=== PATIENT | male | born 1935 | race Caucasian/White ===

== ENCOUNTER 2016-09-29 20:35 | Emergency (ER) | payer MEDICARE ==
[2016-09-29] MEDS ORDERED: Sodium Chloride 0.9% 1000 ML 1,000 ML ONE (20:38)
[2016-09-29] MEDS: Sodium Chloride 0.9% 1000 ML 1,000 ML IV SCH ×2 (20:43→20:49)
[2016-09-29] MEDS ORDERED: Phenergan 25 MG INJ IV ONE ×2 (20:45→21:47)
--- NOTE | 2016-09-29 20:47 | ERPHSYRPT ---
- History of Present Illness Time Seen by Provider: 09/29/16 20:35 Historian: EMS Exam Limitations: other (PT WILL NOT ANSWER MY QUESTIONS) Physician History: PT HAS HAD CHEST HEAVINESS AND LETHARGY TONIGHT PER EMS. PT WILL NOT ANSWER ANY OF MY QUESTIONS. Aspirin Treatment Today: 81 mg x 4, provided by ED Allergies/Adverse Reactions: methotrexate Adverse Reaction (Verified 09/29/16 20:38) Home Medications: Atorvastatin Calcium [Lipitor 40Mg] 40 mg PO DAILY 07/17/16 [History] Celecoxib [Celebrex] 200 mg PO UD 07/17/16 [History] Cyanocobalamin (Vitamin B-12) [Vitamin B-12] 1,000 mcg PO UD 07/17/16 [History] Ferrous Sulfate [Slow Release Iron] 65 mg PO UD 07/17/16 [History] Folic Acid 1 mg PO UD 07/17/16 [History] Glipizide 2.5 mg [Glucotrol Xl 2.5 MG] 2.5 mg PO UD 07/17/16 [History] Lisinopril [Zestril] 2.5 tab PO UD 07/17/16 [History] Metaxalone [Skelaxin] 800 mg PO UD 07/17/16 [History] Nintedanib Esylate [Ofev] 150 mg PO BID 07/17/16 [History] PANTOPRAZOLE 40 mg Tablet [Protonix 40MG Tablet] 40 mg PO UD 07/17/16 [ History] Prednisone 20 mg [Deltasone 20 mg] 20 mg PO DAILY 07/17/16 [History] Pregabalin [Lyrica 150Mg] 150 mg PO UD 07/17/16 [History] Sertraline HCl 100 mg [Zoloft 100 MG] 100 mg PO UD 07/17/16 [History] Zaleplon [Sonata] 10 mg PO UD 07/17/16 [History] Hx Tetanus, Diphtheria Vaccination/Date Given: No Hx Influenza Vaccination/Date Given: Yes Hx Pneumococcal Vaccination/Date Given: Yes - Review of Systems All Other Systems: Unable due to condition (PT WILL NOT ANSWER ANY OF MY QUESTIONS.) - Past Medical History Pertinent Past Medical History: Yes Cardiac History: Congenital Heart Disease, Hypertension Respiratory History: Other GI Medical History: Crohns Disease Other Medical History: pulmonary fibrosis, kidney stones - Past Surgical History Past Surgical History: Yes Cardiac: CABG Gastrointestinal: Appendectomy Musculoskeletal: Orthopedic Surgery Other Surgical History: neck surg,knee surg, great toe - Social History Smoking Status: Former smoker Exposure to second hand smoke: No Drug Use: none Patient Lives Alone: No - Physical Exam General Appearance: alert Eye Exam: PERRL/EOMI Ears, Nose, Throat Exam: moist mucous membranes, pharyngeal erythema Neck Exam: normal inspection Respiratory Exam: other (MINIMAL EXPIRATORY WHEEZING AND RHONCHI OVER LEFT POSTERIOR BASE) Cardiovascular Exam: normal heart sounds Gastrointestinal/Abdomen Exam: soft, normal bowel sounds Back Exam: normal inspection Extremity Exam: normal inspection, No pedal edema Neurologic Exam: other (NO BABINSKI PRESENT; GENERALIZED WEAKNESS.) - Course Nursing assessment & vital signs reviewed: Yes EKG Interpreted by Me: RATE (101), Sinus Tach, Left Mclean Deviation, LAFB, Other (UNIFOCAL PVC'S) Ordered Tests: Active Orders 24 hr Category Date Time Status Beck Operator STAT Care 09/29/16 20:37 Active EKG-ER Only STAT Care 09/29/16 20:37 Active IV Insertion STAT Care 09/29/16 20:37 Active Oxygen-ED Only NASAL CANNULA 2 lpm Care 09/29/16 20:37 Active Pulse Oximetry (ED) STAT Care 09/29/16 20:37 Active CHEST 1 VIEW (PORTABLE) Stat Exams 09/29/16 20:38 Taken CHEST WITH CONTRAST [CT] Stat Exams 09/29/16 23:06 Taken AMYLASE Stat Lab 09/29/16 20:38 Completed ARTERIAL BLOOD GASES Urgent Lab 09/29/16 20:37 Completed BLOOD CULTURE Stat Lab 09/29/16 21:10 Received CBC W DIFF Stat Lab 09/29/16 21:10 Completed CMP Stat Lab 09/29/16 20:38 Completed CULTURE,SPUTUM Stat Lab 09/30/16 00:26 Uncollected CULTURE,URINE Stat Lab 09/29/16 22:25 Received D-DIMER QUANTITATION Stat Lab 09/29/16 20:38 Completed LIPASE Stat Lab 09/29/16 20:38 Completed Lactic Acid Urgent Lab 09/29/16 20:37 Completed MAGNESIUM Stat Lab 09/29/16 20:38 Completed NT PRO BNP Stat Lab 09/29/16 20:38 Completed PROTIME WITH INR Stat Lab 09/29/16 20:38 Completed PTT Stat Lab 09/29/16 20:38 Completed TROPONIN Q3H Lab 09/29/16 20:38 Completed TROPONIN Q3H Lab 09/29/16 23:50 Completed TROPONIN Q3H Lab 09/30/16 02:45 Ordered TROPONIN Q3H Lab 09/30/16 05:45 Ordered TROPONIN Q3H Lab 09/30/16 08:45 Ordered UA W/ MICROSCOPIC Stat Lab 09/29/16 21:40 Completed neb [Respiratory Nebulizer] STAT RT 09/30/16 00:41 Completed Medication Summary Generic Name Dose Route Start Last Admin Trade Name Freq PRN Reason Stop Dose Admin Sodium Chloride 1,000 mls @ 100 mls/hr 09/29/16 20:45 09/29/16 20:43 Sodium Chloride 0.9% 1000 Ml IV 10/29/16 20:44 100 mls/hr .Q10H PATRICIA Administration Discontinued Medications Generic Name Dose Route Start Last Admin Trade Name Freq PRN Reason Stop Dose Admin Al Hydrox/Mg Hydrox/Simethicone 30 ml 09/30/16 00:56 Maalox Es 30 Ml Unit Dose PO 09/30/16 00:57 STAT ONE Hydromorphone HCl 0.5 mg 09/29/16 23:53 09/30/16 00:00 Dilaudid 1 Mg/Ml Injection IV 09/29/16 23:54 0.5 mg STAT ONE Administration Hydromorphone HCl Confirm 09/29/16 23:55 Dilaudid 1 Mg/Ml Injection Administered 09/29/16 23:56 Dose 1 mg .ROUTE .STK-MED ONE Sodium Chloride Confirm 09/29/16 20:38 Sodium Chloride 0.9% 1000 Ml Administered 09/29/16 20:39 Dose 1,000 mls @ ud .ROUTE .STK-MED ONE Magnesium Sulfate/Dextrose 100 mls @ 200 mls/hr 09/29/16 21:51 09/29/16 22:14 Magnesium 1 Gm / 100 Ml D5w IV 09/29/16 22:20 200 mls/hr STAT ONE Administration Magnesium Sulfate/Dextrose Confirm 09/29/16 22:11 Magnesium 1 Gm / 100 Ml D5w Administered 09/29/16 22:12 Dose 100 mls @ ud IV .STK-MED ONE Ceftriaxone Sodium/Dextrose 50 mls @ 100 mls/hr 09/29/16 23:39 09/30/16 00:00 Rocephin 1 Gm-D5w 50 Ml Bag IV 09/30/16 00:08 100 mls/hr STAT ONE Administration Ceftriaxone Sodium/Dextrose Confirm 09/29/16 23:54 Rocephin 1 Gm-D5w 50 Ml Bag Administered 09/29/16 23:55 Dose 50 mls @ ud IV .STK-MED ONE Levalbuterol HCl 1.25 mg 09/30/16 00:26 09/30/16 00:38 Xopenex 1.25 Mg/0.5 Ml Ud Nebule IH 09/30/16 00:27 1.25 mg STAT ONE Administration Levalbuterol HCl Confirm 09/30/16 00:35 Xopenex 1.25 Mg/0.5 Ml Ud Nebule Administered 09/30/16 00:36 Dose 1.25 mg IH .STK-MED ONE Nitroglycerin 0.4 mg 09/29/16 23:05 09/29/16 23:08 Nitrostat 0.4 Mg (Ed) SL 09/29/16 23:06 0.4 mg STAT ONE Administration Nitroglycerin Confirm 09/29/16 23:08 Nitrostat 0.4 Mg (Ed) Administered 09/29/16 23:09 Dose 0.4 mg SL .STK-MED ONE Ondansetron HCl 4 mg 09/29/16 20:57 09/29/16 21:02 Zofran 4 Mg/2 Ml Vial IV 09/29/16 20:58 4 mg STAT ONE Administration Ondansetron HCl Confirm 09/29/16 21:01 Zofran 4 Mg/2 Ml Vial Administered 09/29/16 21:02 Dose 4 mg .ROUTE .STK-MED ONE Promethazine HCl 12.5 mg 09/29/16 20:45 09/29/16 20:49 Phenergan 25 Mg Inj IV 09/29/16 20:46 12.5 mg STAT ONE Administration Promethazine HCl Confirm 09/29/16 20:48 Phenergan 25 Mg Inj Administered 09/29/16 20:49 Dose 25 mg .ROUTE .STK-MED ONE Promethazine HCl 12.5 mg 09/29/16 21:47 09/29/16 21:58 Phenergan 25 Mg Inj IV 09/29/16 21:48 12.5 mg STAT ONE Administration Promethazine HCl Confirm 09/29/16 21:50 Phenergan 25 Mg Inj Administered 09/29/16 21:51 Dose 25 mg .ROUTE .STK-MED ONE Sodium Chloride Confirm 09/30/16 00:36 Sodium Chloride 3 Ml Ud Nebules Administered 09/30/16 00:37 Dose 3 ml IH .STK-MED ONE Lab/Rad Data: Laboratory Result Diagrams 09/29/16 21:10 09/29/16 20:38 Laboratory Results 09/29/16 09/29/16 09/29/16 Range/Units 23:50 21:40 21:10 WBC 10.3 (4.0-10.5) K/mm3 RBC 3.31 L (4.1-5.6) M/mm3 Hgb 10.9 L (12.5-18.0) gm/dl Hct 34.6 L (42-50) % MCV 104.5 H (78-100) fl MCH 32.9 H (26-32) pg MCHC 31.5 L (32-36) g/dl RDW 14.7 H (11.5-14.0) % Plt Count 240 (150-450) K/mm3 MPV 9.9 H (6-9.5) fl Gran % 70.5 H (36.0-66.0) % Lymphocytes % 21.0 L (24.0-44.0) % Monocytes % 6.6 (0.0-12.0) % Eosinophils % 1.7 (0.00-5.0) % Basophils % 0.2 (0.0-0.4) % Basophils # 0.02 (0-0.4) INR (0.8-3.0) PTT (24.1-36.1) SECONDS D-Dimer (0.00-0.49) mg/L Puncture Site pCO2 (35-45) mmHg pO2 (75-100) mmHg Base Excess (-2.0-2.0) O2 Saturation (94-100) g/dF ABG pH (7.35-7.45) ABG HCO3 (22-28) ABG O2 Sat (Measured) (95-100) % Donte Test A-a Gradient a/A Ratio Hemoglobin Carboxyhemoglobin (0.0-6.9) % THgb Methemoglobin (1.4-1.5) % Potassium (3.5-5.1) Temperature C POC O2 Flow Rate % Sodium (136-145) mEq/L Chloride (98-107) mEq/L Carbon Dioxide (21-32) mEq/L Anion Gap (5-15) MEQ/L BUN (9-20) mg/dL Creatinine (0.55-1.30) mg/dl Estimated GFR ML/MIN Glucose (70-110) MG/DL Lactic Acid (0.4-2.0) Calcium (8.5-10.1) mg/dL Magnesium (1.8-2.4) mg/dL Total Bilirubin (0.2-1.0) mg/dL AST (15-37) U/L ALT (12-78) U/L Alkaline Phosphatase (46-116) U/L Troponin I 0.023 (0.000-0.056) ng/ml NT-Pro-B Natriuret Pep (0-450) pg/ml Serum Total Protein (6.4-8.2) gm/dL Albumin (3.4-5.0) g/dL Amylase (25-115) U/L Lipase (73-393) U/L Ur Collection Type CLEAN CATCH Urine Color YELLOW (YELLOW) Urine Appearance CLOUDY (CLEAR) Urine pH 6.0 (5-6) Ur Specific [place] 1.025 (1.005-1.025) Urine Protein 100 (Negative) Urine Glucose (UA) NEGATIVE (NEGATIVE) mg/dL Urine Ketones NEGATIVE (NEGATIVE) Urine Nitrite NEGATIVE (NEGATIVE) Urine Bilirubin NEGATIVE (NEGATIVE) Urine Urobilinogen 0.2 (0-1) mg/dL Urine WBC (Auto) MODERATE (NEGATIVE) Urine RBC (Auto) LARGE (0-5) Russ/ul Urine Microscopic RBC 15-25 (0-2) /HPF Urine Microscopic WBC 25-50 (0-5) /HPF Ur Epithelial Cells RARE (FEW) /HPF Urine Bacteria MODERATE (NEGATIVE) /HPF Urine Mucus SLIGHT (NEGATIVE) /HPF Specimen Received 09/29/16:2150 09/29/16 09/29/16 09/29/16 Range/Units 20:38 20:38 20:38 WBC (4.0-10.5) K/mm3 RBC (4.1-5.6) M/mm3 Hgb (12.5-18.0) gm/dl Hct (42-50) % MCV (78-100) fl MCH (26-32) pg MCHC (32-36) g/dl RDW (11.5-14.0) % Plt Count (150-450) K/mm3 MPV (6-9.5) fl Gran % (36.0-66.0) % Lymphocytes % (24.0-44.0) % Monocytes % (0.0-12.0) % Eosinophils % (0.00-5.0) % Basophils % (0.0-0.4) % Basophils # (0-0.4) INR 1.13 (0.8-3.0) PTT 34.7 (24.1-36.1) SECONDS D-Dimer 0.541 H* (0.00-0.49) mg/L Puncture Site pCO2 (35-45) mmHg pO2 (75-100) mmHg Base Excess (-2.0-2.0) O2 Saturation (94-100) g/dF ABG pH (7.35-7.45) ABG HCO3 (22-28) ABG O2 Sat (Measured) (95-100) % Donte Test A-a Gradient a/A Ratio Hemoglobin Carboxyhemoglobin (0.0-6.9) % THgb Methemoglobin (1.4-1.5) % Potassium 4.2 (3.5-5.1) Temperature C POC O2 Flow Rate % Sodium 141 (136-145) mEq/L Chloride 107 (98-107) mEq/L Carbon Dioxide 22.8 (21-32) mEq/L Anion Gap 15.4 H (5-15) MEQ/L BUN 17 (9-20) mg/dL Creatinine 1.27 (0.55-1.30) mg/dl Estimated GFR 58 ML/MIN Glucose 136 H (70-110) MG/DL Lactic Acid (0.4-2.0) Calcium 9.3 (8.5-10.1) mg/dL Magnesium 1.5 L (1.8-2.4) mg/dL Total Bilirubin 0.4 (0.2-1.0) mg/dL AST 16 (15-37) U/L ALT 14 (12-78) U/L Alkaline Phosphatase 65 (46-116) U/L Troponin I < 0.017 (0.000-0.056) ng/ml NT-Pro-B Natriuret Pep 2806 H (0-450) pg/ml Serum Total Protein 7.6 (6.4-8.2) gm/dL Albumin 3.1 L (3.4-5.0) g/dL Amylase 54 (25-115) U/L Lipase 155 (73-393) U/L Ur Collection Type Urine Color (YELLOW) Urine Appearance (CLEAR) Urine pH (5-6) Ur Specific [place] (1.005-1.025) Urine Protein (Negative) Urine Glucose (UA) (NEGATIVE) mg/dL Urine Ketones (NEGATIVE) Urine Nitrite (NEGATIVE) Urine Bilirubin (NEGATIVE) Urine Urobilinogen (0-1) mg/dL Urine WBC (Auto) (NEGATIVE) Urine RBC (Auto) (0-5) Russ/ul Urine Microscopic RBC (0-2) /HPF Urine Microscopic WBC (0-5) /HPF Ur Epithelial Cells (FEW) /HPF Urine Bacteria (NEGATIVE) /HPF Urine Mucus (NEGATIVE) /HPF Specimen Received 09/29/16 Range/Units 20:37 WBC (4.0-10.5) K/mm3 RBC (4.1-5.6) M/mm3 Hgb (12.5-18.0) gm/dl Hct (42-50) % MCV (78-100) fl MCH (26-32) pg MCHC (32-36) g/dl RDW (11.5-14.0) % Plt Count (150-450) K/mm3 MPV (6-9.5) fl Gran % (36.0-66.0) % Lymphocytes % (24.0-44.0) % Monocytes % (0.0-12.0) % Eosinophils % (0.00-5.0) % Basophils % (0.0-0.4) % Basophils # (0-0.4) INR (0.8-3.0) PTT (24.1-36.1) SECONDS D-Dimer (0.00-0.49) mg/L Puncture Site RIGHT RADIAL pCO2 41 (35-45) mmHg pO2 109 H (75-100) mmHg Base Excess -4.1 L (-2.0-2.0) O2 Saturation 96.7 (94-100) g/dF ABG pH 7.33 L (7.35-7.45) ABG HCO3 21.6 L (22-28) ABG O2 Sat (Measured) 96.8 (95-100) % Donte Test YES A-a Gradient 96 a/A Ratio 0.53 Hemoglobin 12.8 Carboxyhemoglobin 0.2 (0.0-6.9) % THgb Methemoglobin 0.0 L (1.4-1.5) % Potassium 4.2 (3.5-5.1) Temperature 37.0 C POC O2 Flow Rate 36 % Sodium (136-145) mEq/L Chloride (98-107) mEq/L Carbon Dioxide (21-32) mEq/L Anion Gap (5-15) MEQ/L BUN (9-20) mg/dL Creatinine (0.55-1.30) mg/dl Estimated GFR ML/MIN Glucose (70-110) MG/DL Lactic Acid 1.0 (0.4-2.0) Calcium (8.5-10.1) mg/dL Magnesium (1.8-2.4) mg/dL Total Bilirubin (0.2-1.0) mg/dL AST (15-37) U/L ALT (12-78) U/L Alkaline Phosphatase (46-116) U/L Troponin I (0.000-0.056) ng/ml NT-Pro-B Natriuret Pep (0-450) pg/ml Serum Total Protein (6.4-8.2) gm/dL Albumin (3.4-5.0) g/dL Amylase (25-115) U/L Lipase (73-393) U/L Ur Collection Type Urine Color (YELLOW) Urine Appearance (CLEAR) Urine pH (5-6) Ur Specific [place] (1.005-1.025) Urine Protein (Negative) Urine Glucose (UA) (NEGATIVE) mg/dL Urine Ketones (NEGATIVE) Urine Nitrite (NEGATIVE) Urine Bilirubin (NEGATIVE) Urine Urobilinogen (0-1) mg/dL Urine WBC (Auto) (NEGATIVE) Urine RBC (Auto) (0-5) Russ/ul Urine Microscopic RBC (0-2) /HPF Urine Microscopic WBC (0-5) /HPF Ur Epithelial Cells (FEW) /HPF Urine Bacteria (NEGATIVE) /HPF Urine Mucus (NEGATIVE) /HPF Specimen Received - Progress Discussed with .: Other (SPOKE WITH HANH ELL[facility]([id number]) WHO ACCEPTED PT FOR TRANSFER TO [facility] A DIRECT ADMISSION.) - Departure Time of Disposition: 00:59 Departure Disposition: Transfer ([facility]) Clinical Impression: CHEST HEAVINESS, BILATERAL PNEUMONIA, UTI, HTN, CROHN'S DISEASE, PULMONARY FIBROSIS, HYPOMAGNESEMIA Condition: Fair Critical Care Time: No Referrals: NELLY KANG [Primary Care Provider] -
[2016-09-29] MEDS ORDERED: Phenergan 25 MG INJ ONE ×2 (20:48→21:50)
[2016-09-29] MEDS ORDERED: Zofran 4 MG/2 ML VIAL IV ONE (20:57)
[2016-09-29] MEDS ORDERED: Zofran 4 MG/2 ML VIAL ONE (21:01)
[2016-09-29 21:13] LABS: INR 1.13 (0.8-3.0); PROTIME 12.6 SECONDS (8.83-12.87)
[2016-09-29 21:16] LABS: PTT 34.7 SECONDS (24.1-36.1)
[2016-09-29 21:18] LABS: BASOPHIL % 0.2 % (0.0-0.4); Eosinophil % 1.7 % (0.00-5.0); Granulocytes % 70.5 % (36.0-66.0); Mean Cell Volume 104.5 fl (78-100); Mean Corpuscular Hemoglobin 32.9 pg (26-32); Mean Platelet Volume 9.9 fl (6-9.5); Monocytes % 6.6 % (0.0-12.0); Platelet Count 240 K/mm3 (150-450); Red Blood Count 3.31 M/mm3 (4.1-5.6); Red Cell Distribution Width 14.7 % (11.5-14.0); White Blood Count 10.3 K/mm3 (4.0-10.5)
[2016-09-29 21:27] LABS: ALBUMIN 3.1 g/dL (3.4-5.0); ANION GAP 15.4 MEQ/L (5-15); BILIRUBIN,TOTAL 0.4 mg/dL (0.2-1.0); Carbon Dioxide 22.8 mEq/L (21-32); MAGNESIUM 1.5 mg/dL (1.8-2.4); Potassium 4.2 mEq/L (3.5-5.1); Total Protein 7.6 gm/dL (6.4-8.2)
[2016-09-29 21:38] LABS: A-aADO2 96; ARTERIAL BLD GAS O2 SATURATION 96.8 % (95-100); ARTERIAL BLOOD GAS BASE EXCESS -4.1 (-2.0-2.0); ARTERIAL BLOOD GAS FIO2 36 %; ARTERIAL BLOOD GAS PO2 109 mmHg (75-100); ARTERIAL BLOOD GAS pH 7.33 (7.35-7.45)
[2016-09-29 21:39] LABS: ALLEN TEST OK? YES
[2016-09-29] MEDS ORDERED: Magnesium 1 Gm / 100 Ml D5W*** 100 ML IV ONE ×2 (21:51→22:11)
[2016-09-29 21:58] LABS: Collection Type CLEAN CATCH
[2016-09-29 22:05] LABS: COMPLETE URINE MICROSCOPIC? YES
[2016-09-29 22:07] LABS: Bacteria MODERATE /HPF (NEGATIVE); Epithelial Cells RARE /HPF (FEW); Mucus SLIGHT /HPF (NEGATIVE); WBC 25-50 /HPF (0-5)
[2016-09-29] MEDS ORDERED: Nitrostat 0.4 MG (ED) SL ONE ×2 (23:05→23:08)
[2016-09-29] MEDS ORDERED: ROCEPHIN 1 Gm-D5w 50 ml Bag** 50 ML IV ONE ×2 (23:39→23:54)
[2016-09-29] MEDS ORDERED: DILAUDID 1 MG/ML INJECTION IV ONE (23:53)
[2016-09-29] MEDS ORDERED: DILAUDID 1 MG/ML INJECTION ONE (23:55)
[2016-09-30 00:23] VITALS: BP 161/101; PULSE 94; O2SAT 98
[2016-09-30] MEDS ORDERED: Xopenex 1.25 MG/0.5 ML UD NEBULE IH ONE ×2 (00:26→00:35)
[2016-09-30] MEDS ORDERED: Sodium Chloride 3 ML UD NEBULES IH ONE (00:36)
[2016-09-30] MEDS ORDERED: MAALOX ES 30 ML UNIT DOSE PO ONE ×2 (00:56→01:18)
[2016-09-30] MEDS ORDERED: BABY ASPIRIN 81 MG CHEW PO ONE (01:00)
[2016-09-30] MEDS ORDERED: MAALOX ES 30 ML UNIT DOSE ONE ×2 (01:01→01:20)
[2016-09-30] MEDS ORDERED: BABY ASPIRIN 81 MG CHEW ONE (06:27)
--- NOTE | 2016-09-30 09:08 | XRAY ---
Indication: Chest pain and emesis. Comparison: April 08, 2016 Portable chest underinflated today again with diffuse bilateral fibrosis/scarring, cardiomegaly, and previous CABG surgery. No consolidation or large effusion. Superimposed pneumonia not completely excluded.
--- NOTE | 2016-09-30 09:10 | XRAY ---
Indication: Elevated d-dimer. Lethargy. Multiple contiguous axial images obtained through the chest using 80 cc Isovue 370 contrast and PE protocol. Comparison: None There is good opacification of the pulmonary arteries to includes the lobar and segmental branches. No filling defect or pulmonary embolus.. The left main pulmonary artery measures 3 cm in diameter and the right 3.2 cm suggestive of pulmonary hypertension. The heart is enlarged. Scattered aortic and coronary artery calcifications. A few mediastinal and right perihilar calcified nodes. No pathologic mediastinal/hilar lymphadenopathy. Examination of the lung parenchyma demonstrates diffuse bilateral pulmonary fibrosis/scarring with multifocal areas of subpleural honeycombing and cylindrical bronchiectasis. Patchy ground glass airspace opacities seen in the mid to lower lung rhodes. No consolidation or effusion. A few calcified granulomas. Bony thorax intact with mild degenerative changes of the spine and sternotomy wires. Limited upper abdomen demonstrates fatty liver and 12.8 cm splenomegaly. Visualized right kidney demonstrates patchy hypoattenuation more focal in the mid kidney measuring at least 4 cm in axial dimension. This is incompletely visualized. Impression: 1. Negative for pulmonary embolus. Enlarged main pulmonary arteries suggestive of pulmonary hypertension. 2. Diffuse bilateral pulmonary fibrosis/scarring with bronchiectasis and subpleural honeycombing suggestive of idiopathic pulmonary fibrosis. Patchy groundglass airspace opacities bilaterally. Rule out superimposed pneumonia. 3. Cardiomegaly without milla CHF. 4. Incidental findings in the upper abdomen including fatty liver and splenomegaly. There is also incomplete visualized right renal hypoattenuations. Recommend CT abdomen with special attention to the kidneys with and without contrast to further evaluate. 5. 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 Comment: Preliminary interpretation was made by [facility]. Findings in the abdomen not reported. I gave telephone report to Dr. Graf in the ER at 0900 hrs. on September 30, 2016. CT DI is 20.13
== END 2016-09-30 01:49 | disposition short-term general hospital (02) ==
LOC: ED 20:35
DX: R07.89 Other chest pain (principal); J18.9 Pneumonia, unspecified organism; N39.0 Urinary tract infection, site not specified; I10 Essential (primary) hypertension; K50.90 Crohn's disease, unspecified, without complications; J84.10 Pulmonary fibrosis, unspecified; E83.42 Hypomagnesemia; Z79.899 Other long term (current) drug therapy; Z95.1 Presence of aortocoronary bypass graft
CPT/HCPCS: 36000; 36415; 36600; 71010; 71260; 80053; 81000; 82150; 82375; 82803; 83605; 83690; 83735; 83880; 84484; 85025; 85379; 85610; 85730; 87040; 87077; 87086; 93005; 93041; 94640; 96360; 96361; 96365; 96367; 96374; 96375; 96376; 99285; J0696; J1170; J2405; J2550; J3475

== ENCOUNTER 2016-12-05 18:54 | Observation (INO) | payer MEDICARE ==
[2016-12-05] MEDS ORDERED: Pepcid 20 MG VIAL IV ONE ×2 (19:00→19:17)
[2016-12-05] MEDS ORDERED: PROTONIX 40 MG IV IV ONE ×2 (19:00→19:17)
[2016-12-05] MEDS ORDERED: Zofran 4 MG/2 ML VIAL IV ONE (19:00)
[2016-12-05] MEDS ORDERED: Sodium Chloride 0.9% 1000 ML 1,000 ML IV SCH (19:00)
[2016-12-05 19:08] LABS: BASOPHIL % 0.1 % (0.0-0.4); Eosinophil % 0.5 % (0.00-5.0); Granulocytes % 71.2 % (36.0-66.0); Lymphocytes % 17.6 % (24.0-44.0); Mean Cell Volume 104.2 fl (78-100); Mean Corpuscular Hemoglobin 33.4 pg (26-32); Monocytes % 10.6 % (0.0-12.0); Platelet Count 187 K/mm3 (150-450); Red Blood Count 3.53 M/mm3 (4.1-5.6); White Blood Count 7.5 K/mm3 (4.0-10.5)
--- NOTE | 2016-12-05 19:12 | ERPHSYRPT ---
- History of Present Illness Time Seen by Provider: 12/05/16 18:59 Historian: patient, family Exam Limitations: no limitations Physician History: pt is 81 year old gentleman with chronic lung dx - ( pulmonary fibrosis for methotrexate tx of crohns dx per pt ) on home 02 but with poor intake , vomiting and diarrhea past 2 weeks, denies abd pain but has general tenderness on exam without peritoneal signs recent hx kidney stones, denies cancer, but has hx CAD/bypass, no CP today. pt has crohns disease also and treated with med Timing/Duration: day(s) Activities at Onset: none Quality: other (pain denied but tendere) Abdominal Pain Onset Location: other (pain denied but tender) Pain Radiation: no radiation Severity of Pain-Max: none Severity of Pain-Current: none Modifying Factors: Improves With: nothing Associated Symptoms: diarrhea, loss of appetite, nausea, vomiting, weakness Previous symptoms: no prior history, no recent treatment Allergies/Adverse Reactions: methotrexate Adverse Reaction (Verified 12/05/16 19:02) Home Medications: Atorvastatin Calcium [Lipitor 40Mg] 40 mg PO DAILY 07/17/16 [History] Celecoxib [Celebrex] 200 mg PO UD 07/17/16 [History] Cyanocobalamin (Vitamin B-12) [Vitamin B-12] 1,000 mcg PO UD 07/17/16 [History] Ferrous Sulfate [Slow Release Iron] 65 mg PO UD 07/17/16 [History] Folic Acid 1 mg PO UD 07/17/16 [History] Glipizide 2.5 mg [Glucotrol Xl 2.5 MG] 2.5 mg PO UD 07/17/16 [History] Lisinopril [Zestril] 2.5 tab PO UD 07/17/16 [History] Metaxalone [Skelaxin] 800 mg PO UD 07/17/16 [History] Nintedanib Esylate [Ofev] 150 mg PO BID 07/17/16 [History] PANTOPRAZOLE 40 mg Tablet [Protonix 40MG Tablet] 40 mg PO UD 07/17/16 [ History] Prednisone 20 mg [Deltasone 20 mg] 20 mg PO DAILY 07/17/16 [History] Pregabalin [Lyrica 150Mg] 150 mg PO UD 07/17/16 [History] Sertraline HCl 100 mg [Zoloft 100 MG] 100 mg PO UD 07/17/16 [History] Zaleplon [Sonata] 10 mg PO UD 07/17/16 [History] Hx Tetanus, Diphtheria Vaccination/Date Given: No Hx Influenza Vaccination/Date Given: Yes Hx Pneumococcal Vaccination/Date Given: Yes - Review of Systems Constitutional: No Fever, No Chills Eyes: No Symptoms Ears, Nose, & Throat: No Symptoms Respiratory: Dyspnea, No Cough Cardiac: No Chest Pain, No Edema, No Syncope Abdominal/Gastrointestinal: Abdominal Pain (one omnthago diagnosed as kidney stones), Nausea, Vomiting, Diarrhea, Appetite Changes Genitourinary Symptoms: No Dysuria Musculoskeletal: No Back Pain, No Neck Pain Skin: No Symptoms, No Rash Neurological: No Dizziness, No Focal Weakness, No Sensory Changes Psychological: No Symptoms Endocrine: No Symptoms Hematologic/Lymphatic: No Symptoms Immunological/Allergic: No Symptoms All Other Systems: Reviewed and Negative - Past Medical History Pertinent Past Medical History: Yes Cardiac History: Congenital Heart Disease, Hypertension Respiratory History: Other GI Medical History: Crohns Disease Other Medical History: pulmonary fibrosis, kidney stones - Past Surgical History Past Surgical History: Yes Cardiac: CABG Gastrointestinal: Appendectomy Musculoskeletal: Orthopedic Surgery Other Surgical History: neck surg,knee surg, great toe - Social History Smoking Status: Former smoker Exposure to second hand smoke: No Drug Use: none Patient Lives Alone: No - Nursing Vital Signs Nursing Vital Signs: Initial Vital Signs Temperature 98.7 F Temperature Source Rectal Pulse Rate 93 Respiratory Rate 20 Blood Pressure [] 130/86 Pain Intensity 0 - Physical Exam General Appearance: moderate distress, alert Eye Exam: PERRL/EOMI, eyes nml inspection Ears, Nose, Throat Exam: normal ENT inspection, pharynx normal, moist mucous membranes Neck Exam: normal inspection, non-tender, supple, full range of motion Respiratory Exam: crackles/rales, No respiratory distress Cardiovascular Exam: regular rate/rhythm, normal heart sounds Gastrointestinal/Abdomen Exam: soft, tenderness, No mass Rectal Exam: deferred Back Exam: normal inspection, normal range of motion, No CVA tenderness, No vertebral tenderness Extremity Exam: normal inspection, normal range of motion, pelvis stable Neurologic Exam: alert, oriented x 3, cooperative, normal mood/affect, nml cerebellar function, sensation nml, No motor deficits Skin Exam: normal color, warm, dry - Course Nursing assessment & vital signs reviewed: Yes EKG Interpreted by Me: Sinus Rhythm, Left [place] Deviation, 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), Right Bundle Branch Block, Non-specific ST Changes - Radiology Exams Chest X-ray Interpretation: Reviewed by me, Infiltrates, Other (pulm fibrosis sim to prev some increase infilts) - CT Exams Abdomen/Pelvis CT Interpretation: Tele-radiologist Report, diverticulitis Ordered Tests: Active Orders 24 hr Category Date Time Status Clean Catch Urine Specimen STAT Care 12/05/16 19:00 Active EKG-ER Only STAT Care 12/05/16 19:00 Active IV Insertion STAT Care 12/05/16 19:00 Active NPO (ED) STAT Care 12/05/16 19:00 Active Oxygen-ED Only NASAL CANNULA 4 lpm Care 12/05/16 19:00 Active Pulse Oximetry (ED) STAT Care 12/05/16 19:00 Active ABDOMEN AND PELVIS W/0 CONTRAS [CT] Stat Exams 12/05/16 19:01 Taken CHEST 1 VIEW (PORTABLE) Stat Exams 12/05/16 19:00 Taken AMYLASE Stat Lab 12/05/16 19:00 Completed CBC W DIFF Stat Lab 12/05/16 19:00 Completed CMP Stat Lab 12/05/16 19:00 Completed LIPASE Stat Lab 12/05/16 19:00 Completed Lactic Acid Urgent Lab 12/05/16 19:00 Completed Occult Blood,Stool Other Stat Lab 12/05/16 19:25 Completed TROPONIN Stat Lab 12/05/16 19:00 Completed UA W/ MICROSCOPIC Stat Lab 12/05/16 19:50 Completed Respiratory Nebulizer STAT RT 12/05/16 19:56 Active Medication Summary Generic Name Dose Route Start Last Admin Trade Name Freq PRN Reason Stop Dose Admin Sodium Chloride 1,000 mls @ 100 mls/hr 12/05/16 19:00 12/05/16 19:26 Sodium Chloride 0.9% 1000 Ml IV 01/04/17 18:59 100 mls/hr .Q10H PATRICIA Administration Ceftriaxone Sodium/Dextrose 50 mls @ 100 mls/hr 12/05/16 20:10 12/05/16 20:24 Rocephin 1 Gm-D5w 50 Ml Bag IV 12/05/16 20:39 100 mls/hr STAT ONE Administration Piperacillin Sod/Tazobactam Sod 100 mls @ 100 mls/hr 12/05/16 20:21 Zosyn 3.375gm/100 Ml D5w IV 12/05/16 21:20 STAT ONE Metronidazole 100 mls @ 100 mls/hr 12/05/16 20:21 Flagyl 500 Mg Ivpb IV 12/05/16 21:20 STAT ONE Discontinued Medications Generic Name Dose Route Start Last Admin Trade Name Freq PRN Reason Stop Dose Admin Albuterol/Ipratropium 3 ml 12/05/16 19:55 12/05/16 20:04 Duoneb 0.5-3 Mg/3 Ml Neb IH 12/05/16 19:56 3 ml STAT ONE Administration Albuterol/Ipratropium Confirm 12/05/16 20:03 Duoneb 0.5-3 Mg/3 Ml Neb Administered 12/05/16 20:04 Dose 3 ml IH .STK-MED ONE Famotidine 20 mg 12/05/16 19:00 12/05/16 19:26 Pepcid 20 Mg Vial IV 12/05/16 19:01 20 mg STAT ONE Administration Famotidine Confirm 12/05/16 19:17 Pepcid 20 Mg Vial Administered 12/05/16 19:18 Dose 20 mg IV .STK-MED ONE Sodium Chloride Confirm 12/05/16 19:17 Sodium Chloride 0.9% 1000 Ml Administered 12/05/16 19:18 Dose 1,000 mls @ ud .ROUTE .STK-MED ONE Ceftriaxone Sodium/Dextrose Confirm 12/05/16 20:16 Rocephin 1 Gm-D5w 50 Ml Bag Administered 12/05/16 20:17 Dose 50 mls @ ud IV .STK-MED ONE Methylprednisolone Sodium Succinate 40 mg 12/05/16 19:58 12/05/16 20:11 Solu-Medrol 40 Mg IV 12/05/16 19:59 40 mg STAT ONE Administration Ondansetron HCl 4 mg 12/05/16 19:00 12/05/16 19:26 Zofran 4 Mg/2 Ml Vial IV 12/05/16 19:01 4 mg STAT ONE Administration Ondansetron HCl Confirm 12/05/16 19:17 Zofran 4 Mg/2 Ml Vial Administered 12/05/16 19:18 Dose 4 mg .ROUTE .STK-MED ONE Pantoprazole Sodium 40 mg 12/05/16 19:00 12/05/16 19:25 Protonix 40 Mg Iv IV 12/05/16 19:01 40 mg STAT ONE Administration Pantoprazole Sodium Confirm 12/05/16 19:17 Protonix 40 Mg Iv Administered 12/05/16 19:18 Dose 40 mg IV .STK-MED ONE Lab/Rad Data: Laboratory Result Diagrams 12/05/16 19:00 12/05/16 19:00 Laboratory Results 12/05/16 12/05/16 12/05/16 Range/Units 19:50 19:25 19:08 WBC (4.0-10.5) K/mm3 RBC (4.1-5.6) M/mm3 Hgb (12.5-18.0) gm/dl Hct (42-50) % MCV (78-100) fl MCH (26-32) pg MCHC (32-36) g/dl RDW (11.5-14.0) % Plt Count (150-450) K/mm3 MPV (6-9.5) fl Gran % (36.0-66.0) % Lymphocytes % (24.0-44.0) % Monocytes % (0.0-12.0) % Eosinophils % (0.00-5.0) % Basophils % (0.0-0.4) % Basophils # (0-0.4) Sodium (136-145) mEq/L Potassium (3.5-5.1) mEq/L Chloride (98-107) mEq/L Carbon Dioxide (21-32) mEq/L Anion Gap (5-15) MEQ/L BUN (9-20) mg/dL Creatinine (0.55-1.30) mg/dl Estimated GFR ML/MIN Glucose (70-110) MG/DL Lactic Acid (0.4-2.0) Calcium (8.5-10.1) mg/dL Total Bilirubin (0.2-1.0) mg/dL AST (15-37) U/L ALT (12-78) U/L Alkaline Phosphatase (46-116) U/L Troponin I (0.000-0.056) ng/ml Serum Total Protein (6.4-8.2) gm/dL Albumin (3.4-5.0) g/dL Amylase (25-115) U/L Lipase (73-393) U/L Ur Collection Type CLEAN CATCH Urine Color ORANGE (YELLOW) Urine Appearance SLIGHTLY CLOUDY (CLEAR) Urine pH 6.0 (5-6) Ur Specific Carlin 1.015 (1.005-1.025) Urine Protein 100 (Negative) Urine Glucose (UA) 100 (NEGATIVE) mg/dL Urine Ketones SMALL-15 (NEGATIVE) Urine Nitrite POSITIVE (NEGATIVE) Urine Bilirubin NEGATIVE (NEGATIVE) Urine Urobilinogen 1 (0-1) mg/dL Urine WBC (Auto) MODERATE (NEGATIVE) Urine RBC (Auto) SMALL (0-5) Russ/ul Urine Microscopic RBC 15-25 (0-2) /HPF Urine Microscopic WBC 50-100 (0-5) /HPF Ur Epithelial Cells RARE (FEW) /HPF Urine Bacteria MODERATE (NEGATIVE) /HPF Urine Mucus SLIGHT (NEGATIVE) /HPF Stool Occult Blood NEGATIVE (Negative) Influenza Type A Ag NEGATIVE (NEGATIVE) Influenza Type B Ag NEGATIVE (NEGATIVE) RSV (PCR) NEGATIVE (Negative) Specimen Received 12/05/16:1950 12/05/16 12/05/16 12/05/16 Range/Units 19:00 19:00 19:00 WBC 7.5 (4.0-10.5) K/mm3 RBC 3.53 L (4.1-5.6) M/mm3 Hgb 11.8 L (12.5-18.0) gm/dl Hct 36.8 L (42-50) % MCV 104.2 H (78-100) fl MCH 33.4 H (26-32) pg MCHC 32.1 (32-36) g/dl RDW 13.0 (11.5-14.0) % Plt Count 187 (150-450) K/mm3 MPV 11.0 H (6-9.5) fl Gran % 71.2 H (36.0-66.0) % Lymphocytes % 17.6 L (24.0-44.0) % Monocytes % 10.6 (0.0-12.0) % Eosinophils % 0.5 (0.00-5.0) % Basophils % 0.1 (0.0-0.4) % Basophils # 0.01 (0-0.4) Sodium 144 (136-145) mEq/L Potassium 3.6 (3.5-5.1) mEq/L Chloride 106 (98-107) mEq/L Carbon Dioxide 24.6 (21-32) mEq/L Anion Gap 16.5 H (5-15) MEQ/L BUN 26 H (9-20) mg/dL Creatinine 1.46 H (0.55-1.30) mg/dl Estimated GFR 49 ML/MIN Glucose 132 H (70-110) MG/DL Lactic Acid 1.2 (0.4-2.0) Calcium 9.0 (8.5-10.1) mg/dL Total Bilirubin 0.5 (0.2-1.0) mg/dL AST 25 (15-37) U/L ALT 17 (12-78) U/L Alkaline Phosphatase 70 (46-116) U/L Troponin I < 0.017 (0.000-0.056) ng/ml Serum Total Protein 8.8 H (6.4-8.2) gm/dL Albumin 3.3 L (3.4-5.0) g/dL Amylase 25 (25-115) U/L Lipase 80 (73-393) U/L Ur Collection Type Urine Color (YELLOW) Urine Appearance (CLEAR) Urine pH (5-6) Ur Specific [place]lin (1.005-1.025) Urine Protein (Negative) Urine Glucose (UA) (NEGATIVE) mg/dL Urine Ketones (NEGATIVE) Urine Nitrite (NEGATIVE) Urine Bilirubin (NEGATIVE) Urine Urobilinogen (0-1) mg/dL Urine WBC (Auto) (NEGATIVE) Urine RBC (Auto) (0-5) Russ/ul Urine Microscopic RBC (0-2) /HPF Urine Microscopic WBC (0-5) /HPF Ur Epithelial Cells (FEW) /HPF Urine Bacteria (NEGATIVE) /HPF Urine Mucus (NEGATIVE) /HPF Stool Occult Blood (Negative) Influenza Type A Ag (NEGATIVE) Influenza Type B Ag (NEGATIVE) RSV (PCR) (Negative) Specimen Received - Progress Progress: improved, re-examined Progress Note: 12/05/16 20:36 discussed with pt , family , and Dr. Petty covering and all agree best to bring pt in for obs and treatment until verónica oral again. Discussed with : Jovanny Will see patient in: hospital (observation) Counseled pt/family regarding: lab results, diagnosis, need for follow-up, rad results - Departure Time of Disposition: 20:38 Departure Disposition: Observation Clinical Impression: UTI (urinary tract infection), Diverticulitis large intestine, Crohn disease, Pulmonary fibrosis, Intractable vomiting Condition: Good Critical Care Time: No
[2016-12-05] MEDS ORDERED: Zofran 4 MG/2 ML VIAL ONE (19:17)
[2016-12-05] MEDS ORDERED: Sodium Chloride 0.9% 1000 ML 1,000 ML ONE (19:17)
[2016-12-05 19:28] LABS: ALBUMIN 3.3 g/dL (3.4-5.0); ALKALINE PHOSPHATASE 70 U/L (46-116); ANION GAP 16.5 MEQ/L (5-15); BILIRUBIN,TOTAL 0.5 mg/dL (0.2-1.0); BLOOD UREA NITROGEN 26 mg/dL (9-20); CHLORIDE 106 mEq/L (98-107); Carbon Dioxide 24.6 mEq/L (21-32); Glucose 132 MG/DL (70-110); LIPASE 80 U/L (73-393); Potassium 3.6 mEq/L (3.5-5.1); SGOT/AST 25 U/L (15-37); SGPT/ALT 17 U/L (12-78); SODIUM 144 mEq/L (136-145); Total Protein 8.8 gm/dL (6.4-8.2)
[2016-12-05 19:29] LABS: TROPONIN < 0.017 ng/ml (0.000-0.056)
[2016-12-05] MEDS ORDERED: DUONEB 0.5-3 MG/3 ml Neb IH ONE ×2 (19:55→20:03)
[2016-12-05 19:58] LABS: Collection Type CLEAN CATCH
[2016-12-05] MEDS ORDERED: solu-MEDROL 40 MG IV ONE (19:58)
[2016-12-05 19:59] LABS: COMPLETE URINE MICROSCOPIC? YES
[2016-12-05 20:07] LABS: Bacteria MODERATE /HPF (NEGATIVE); Epithelial Cells RARE /HPF (FEW); Mucus SLIGHT /HPF (NEGATIVE); WBC 50-100 /HPF (0-5)
[2016-12-05] MEDS ORDERED: ROCEPHIN 1 Gm-D5w 50 ml Bag** 50 ML IV ONE ×2 (20:10→20:16)
[2016-12-05] MEDS ORDERED: FLAGYL 500 MG IVPB 100 ML IV ONE ×2 (20:21→20:51)
[2016-12-05] MEDS ORDERED: Zosyn 3.375GM/100 Ml D5W 100 ML IV ONE (20:21)
[2016-12-05] MEDS ORDERED: DUONEB 0.5-3 MG/3 ml Neb IH PRN (21:48)
[2016-12-05] MEDS ORDERED: NovoLIN R SQ PRN (21:48)
--- NOTE | 2016-12-05 22:21 | XRAY ---
Indication: Vomiting and diarrhea. Abdominal tenderness. Multiple contiguous axial images obtained through the abdomen and pelvis without contrast as ordered. Comparison: July 17, 2016. Lung bases again demonstrates extensive bilateral pulmonary fibrosis/scarring and bronchiectasis. Stable right infrahilar and right base calcified granulomas. Heart is borderline enlarged. Noncontrasted stomach and bowel loops appear nonobstructed. Again sigmoid diverticulosis with now mild stranding favoring diverticulitis. No free fluid/air. Again nonobstructing bilateral calculi, prominent prostate gland with chunky calcifications, calcified splenic granulomas, and a IVC filter. Remaining liver, gallbladder, pancreas, spleen, adrenal glands, kidneys, ureters, and bladder appear unremarkable for noncontrast exam. There remains heavy aortoiliac calcifications without AAA. Osseous structures again demonstrates multilevel degenerative changes throughout the spine and stable grade 2 L4 spondylolisthesis. Impression: 1. Again sigmoid diverticulosis with new findings favoring mild diverticulitis. No complications. 2. Stable bilateral renal calculi, prominent prostate gland with benign chunky calcifications, evidence for old granulomatous disease, extensive pulmonary fibrosis/scarring/bronchiectasis, and L4 grade 2 spondylolisthesis. CTDI 17.79
--- NOTE | 2016-12-05 22:23 | XRAY ---
Indication: Chronic respiratory disease with rales. Comparison: September 29, 2016. Portable chest unchanged again with diffuse bilateral pulmonary fibrosis/scarring, cardiomegaly, and previous CABG surgery. No consolidation or large effusion. Superimposed pneumonia not completely excluded.
[2016-12-05] MEDS: Pepcid 20 MG VIAL IV SCH (22:25)
[2016-12-05] MEDS: MORPHINE SULFATE 2 MG INJ IV PRN (23:19)
[2016-12-05] MEDS: Zofran 4 MG/2 ML VIAL IV PRN (23:35)
[2016-12-05] MEDS: Zosyn 3.375GM/100 Ml D5W 100 ML IV SCH (23:56)
[2016-12-06] MEDS: FLAGYL 500 MG IVPB 100 ML IV SCH ×4 (03:14→23:28)
[2016-12-06] MEDS: Zosyn 3.375GM/100 Ml D5W 100 ML IV SCH ×3 (05:33→17:06)
[2016-12-06] MEDS: MORPHINE SULFATE 2 MG INJ IV PRN ×4 (05:33→21:58)
[2016-12-06] MEDS: Zofran 4 MG/2 ML VIAL IV PRN (05:35)
[2016-12-06 05:38] LABS: BASOPHIL % 0.2 % (0.0-0.4); Granulocytes % 74.1 % (36.0-66.0); Lymphocytes % 15.4 % (24.0-44.0); Mean Cell Volume 104.9 fl (78-100); Mean Corpuscular Hemoglobin 33.4 pg (26-32); Mean Platelet Volume 11.3 fl (6-9.5); Monocytes % 10.3 % (0.0-12.0); Platelet Count 151 K/mm3 (150-450); Red Blood Count 2.87 M/mm3 (4.1-5.6); Red Cell Distribution Width 12.7 % (11.5-14.0); White Blood Count 4.3 K/mm3 (4.0-10.5)
[2016-12-06 05:50] LABS: ALBUMIN 2.5 g/dL (3.4-5.0); ALKALINE PHOSPHATASE 50 U/L (46-116); ANION GAP 14.9 MEQ/L (5-15); BILIRUBIN,TOTAL 0.4 mg/dL (0.2-1.0); BLOOD UREA NITROGEN 22 mg/dL (9-20); CHLORIDE 110 mEq/L (98-107); Carbon Dioxide 22.9 mEq/L (21-32); Glucose 121 MG/DL (70-110); Potassium 3.7 mEq/L (3.5-5.1); SGOT/AST 18 U/L (15-37); SGPT/ALT 10 U/L (12-78); SODIUM 144 mEq/L (136-145); Total Protein 7.1 gm/dL (6.4-8.2)
--- NOTE | 2016-12-06 06:31 | PCM.HP ---
History of Present Illness - Chief Complaint Chief Complaint: intractable Vomiting with diverticulitis, crohns, UTI, renal stones History of Present Illness: is a 81 year old male who presented to the ER with abdominal pain and intractable vomiting, he is feeling better since admission. He reports discolored stools but he thinks this is from the antibiotic, he appears to be a poor historian. He reports a history of Crohn's in the past with similar exacerbation. - Review of Systems Constitutional: No Fever, No Chills Respiratory: No Cough, No Short Of Breath Cardiac: No Chest Pain, No Edema, No Syncope Abdominal/Gastrointestinal: Abdominal Pain Genitourinary Symptoms: No Dysuria Skin: No Rash All Other Systems: Reviewed and Negative Medications & Allergies Home Medications: Home Medication List Atorvastatin Calcium [Lipitor 40Mg] 40 mg PO DAILY 07/17/16 [History Confirmed 12/05/16] Celecoxib [Celebrex] 200 mg PO UD 07/17/16 [History Confirmed 12/05/16] Cyanocobalamin (Vitamin B-12) [Vitamin B-12] 1,000 mcg PO UD 07/17/16 [History Confirmed 12/05/16] Ferrous Sulfate [Slow Release Iron] 65 mg PO UD 07/17/16 [History Confirmed ] Folic Acid 1 mg PO UD 07/17/16 [History Confirmed 12/05/16] Glipizide 2.5 mg [Glucotrol Xl 2.5 MG] 2.5 mg PO UD 07/17/16 [History Confirmed 12/05/16] Metaxalone [Skelaxin] 800 mg PO UD 07/17/16 [History Confirmed 12/05/16] PANTOPRAZOLE 40 mg Tablet [Protonix 40MG Tablet] 40 mg PO UD 07/17/16 [ History Confirmed 12/05/16] Pregabalin [Lyrica 150Mg] 150 mg PO UD 07/17/16 [History Confirmed 12/05/16] Sertraline HCl 100 mg [Zoloft 100 MG] 100 mg PO UD 07/17/16 [History Confirmed 12/05/16] Zaleplon [Sonata] 10 mg PO UD 07/17/16 [History Confirmed 12/05/16] Multivitamin [Multi-Vitamin Daily] 1 each PO DAILY 12/05/16 [History Confirmed 12/05/16] Allergies/Adverse Reactions: Allergies Allergy/AdvReac Type Severity Reaction Status Date / Time methotrexate AdvReac Verified 12/05/16 21:52 - Past Medical History Past Medical History: Yes ENT History: Cataracts Cardiac History: Congenital Heart Disease, Hypertension Respiratory History: COPD, Other Endocrine Medical History: Diabetes Type II GI Medical History: Crohns Disease, Diverticulitis History: Other Pyscho-Social History: Depression Comment: pulmonary fibrosis, kidney stones - Past Surgical History Past Surgical History: Yes Cardiac History: CABG GI Surgical History: Appendectomy Musculskeletal Surgical Hx: Orthopedic Surgery Other Surgical History: neck surg,knee surg, great toe calcium deposit - Social History Smoking Status: Former smoker Exposure to second hand smoke: No Alcohol: None Drug Use: none - Physical Exam Vital Signs: Vital Signs - 24 hr Temp Pulse Resp BP Pulse Ox 12/06/16 05:22 78 20 98 12/06/16 04:00 98.0 F 76 20 115/59 97 12/06/16 02:00 77 18 95 12/06/16 01:12 18 12/06/16 00:00 98.6 F 86 20 135/81 98 12/05/16 22:52 97.4 F 72 16 157/83 98 12/05/16 22:00 97.4 F 72 16 157/83 98 12/05/16 20:26 93 H 20 130/86 100 12/05/16 20:07 87 18 100 12/05/16 19:56 88 14 149/83 100 12/05/16 19:09 100 12/05/16 19:02 98.7 F 92 H 18 152/81 100 Oxygen-Last 24 hours O2 Percentage 3 Liters = 32% O2 Percentage 4 Liters = 36% O2 Percentage 4 Liters = 36% O2 Percentage 4 Liters = 36% O2 Percentage 4 Liters = 36% O2 Percentage 4 Liters = 36% O2 Percentage 4 Liters = 36% O2 Percentage 4 Liters = 36% General Appearance: no apparent distress, alert Respiratory Exam: normal breath sounds, lungs clear, No respiratory distress Cardiovascular Exam: regular rate/rhythm, normal heart sounds, normal peripheral pulses Gastrointestinal/Abdomen Exam: soft, No tenderness, No distention, No mass, No guarding Skin Exam: normal color, warm, dry, No rash Results - Labs Lab/Micro Results: Accuchecks Date 12/06/16 Date 12/06/16 Time 04:00 Time 00:00 Accucheck Value: 118 Accucheck Value: 173 Lab Results-Last 24 Hours 12/06/16 12/06/16 Range/Units 05:00 05:00 WBC 4.3 (4.0-10.5) K/mm3 RBC 2.87 L (4.1-5.6) M/mm3 Hgb 9.6 L (12.5-18.0) gm/dl Hct 30.1 L (42-50) % MCV 104.9 H (78-100) fl MCH 33.4 H (26-32) pg MCHC 31.9 L (32-36) g/dl RDW 12.7 (11.5-14.0) % Plt Count 151 (150-450) K/mm3 MPV 11.3 H (6-9.5) fl Gran % 74.1 H (36.0-66.0) % Lymphocytes % 15.4 L (24.0-44.0) % Monocytes % 10.3 (0.0-12.0) % Eosinophils % 0.0 (0.00-5.0) % Basophils % 0.2 (0.0-0.4) % Basophils # 0.01 (0-0.4) Sodium 144 (136-145) mEq/L Potassium 3.7 (3.5-5.1) mEq/L Chloride 110 H (98-107) mEq/L Carbon Dioxide 22.9 (21-32) mEq/L Anion Gap 14.9 (5-15) MEQ/L BUN 22 H (9-20) mg/dL Creatinine 1.20 (0.55-1.30) mg/dl Estimated GFR > 60 ML/MIN Glucose 121 H (70-110) MG/DL Calcium 8.0 L (8.5-10.1) mg/dL Total Bilirubin 0.4 (0.2-1.0) mg/dL AST 18 (15-37) U/L ALT 10 L (12-78) U/L Alkaline Phosphatase 50 (46-116) U/L Serum Total Protein 7.1 (6.4-8.2) gm/dL Albumin 2.5 L (3.4-5.0) g/dL Prealbumin 11.2 L (18.0-35.7) mg/dL Accuchecks Date 12/06/16 Date 12/06/16 Time 04:00 Time 00:00 Accucheck Value: 118 Accucheck Value: 173 - Other Procedures and Tests Respiratory Therapy 12/06/16 06:14 Oxygen NASAL CANNULA 4 lpm Assessment/Plan (1) Diverticulitis large intestine Current Visit: Yes Status: Acute Assessment & Plan: continue zosyn at this time, no need for other abx in my opinion. Code(s): K57.32 - DVTRCLI OF LG INT W/O PERFORATION OR ABSCESS W/O BLEEDING (2) Crohn disease Current Visit: Yes Status: Acute Assessment & Plan: continue IV steroids for likely exacerbation Code(s): K50.90 - CROHN'S DISEASE, UNSPECIFIED, WITHOUT COMPLICATIONS (3) Intractable vomiting Current Visit: Yes Status: Acute Assessment & Plan: appears resolved, start clears Code(s): R11.10 - VOMITING, UNSPECIFIED (4) Anemia Current Visit: No Status: Acute Assessment & Plan: heme test stools Code(s): D64.9 - ANEMIA, UNSPECIFIED
[2016-12-06] MEDS ORDERED: solu-MEDROL 125 MG IV SCH ×2 (07:00→10:00)
[2016-12-06] MEDS ORDERED: NON-FORMULARY ITEM (Sertraline Hcl 100 Mg [Zoloft 100 Mg] 100 MG) PO SCH (08:00)
[2016-12-06] MEDS: Sodium Chloride 0.9% 1000 ML 1,000 ML IV SCH ×2 (08:05→21:58)
[2016-12-06] MEDS: Protonix 40MG Tablet PO SCH (09:05)
[2016-12-06] MEDS: Pepcid 20 MG VIAL IV SCH ×3 (09:05→21:59)
[2016-12-06] MEDS: solu-MEDROL 40 MG IV SCH ×2 (09:05→21:59)
[2016-12-06] MEDS ORDERED: PROTONIX 40 MG IV IV SCH (10:00)
[2016-12-06] MEDS ORDERED: ROCEPHIN 1 Gm-D5w 50 ml Bag** 50 ML IV SCH (10:00)
[2016-12-06] MEDS ORDERED: PULMICORT 0.5 MG/2 ML RESPULES IH SCH (10:00)
[2016-12-06] MEDS ORDERED: LYRICA 150MG PO SCH (12:15)
[2016-12-06] MEDS: LYRICA 150MG PO SCH ×2 (12:29→21:59)
[2016-12-06] MEDS: ZOLOFT 50 MG TABLET PO SCH ×2 (12:30→21:59)
[2016-12-06] MEDS: PATIENT OWN MEDICATION PO SCH ×4 (16:06→22:03)
[2016-12-07] MEDS: Zosyn 3.375GM/100 Ml D5W 100 ML IV SCH ×2 (00:43→05:05)
[2016-12-07] MEDS: FLAGYL 500 MG IVPB 100 ML IV SCH ×2 (01:54→06:01)
[2016-12-07] MEDS: MORPHINE SULFATE 2 MG INJ IV PRN ×2 (02:42→09:33)
[2016-12-07 06:13] LABS: BASOPHIL % 0.2 % (0.0-0.4); Eosinophil % 0.2 % (0.00-5.0); Granulocytes % 73.6 % (36.0-66.0); Lymphocytes % 20.2 % (24.0-44.0); Mean Cell Volume 106.3 fl (78-100); Mean Corpuscular Hemoglobin 33.2 pg (26-32); Mean Platelet Volume 10.9 fl (6-9.5); Monocytes % 5.8 % (0.0-12.0); Platelet Count 147 K/mm3 (150-450); Red Blood Count 2.71 M/mm3 (4.1-5.6); Red Cell Distribution Width 12.7 % (11.5-14.0); White Blood Count 4.3 K/mm3 (4.0-10.5)
[2016-12-07 06:33] LABS: ALBUMIN 2.3 g/dL (3.4-5.0); ANION GAP 9.8 MEQ/L (5-15); BILIRUBIN,TOTAL 0.2 mg/dL (0.2-1.0); Carbon Dioxide 25.8 mEq/L (21-32); Potassium 4.5 mEq/L (3.5-5.1); Total Protein 6.6 gm/dL (6.4-8.2)
--- NOTE | 2016-12-07 07:44 | PCM.DS ---
Discharge Summary Date of Admission: 12/05/16 21:30 Admitting Physician: MASON ENGLE Primary Care Provider: NELLY KANG Allergies Allergies methotrexate Adverse Reaction (Verified 12/05/16 21:52) Hospital Summary - Hospital Course Hospital Course: patient was admitted with abdominal pain and vomiting, has resolved since admission. he is tolerating regular diet, no pain, no vomiting, no diarrhea. overall feels well - Vitals & Intake/Output Vital Signs: Vital Signs Temperature 98.2 F 12/07/16 04:00 Pulse Rate 66 12/07/16 04:00 Respiratory Rate 16 12/07/16 04:00 Blood Pressure 90/50 12/07/16 04:00 O2 Sat by Pulse Oximetry 98 12/07/16 04:00 Oxygen-Last Documented O2 Percentage 3 Liters = 32% Intake & Output: Intake & Output 12/04/16 12/05/16 12/06/16 12/07/16 11:59 11:59 11:59 11:59 Intake Total 840 3509 Output Total 1025 1350 Balance -185 2159 Weight 68.402 kg - Lab Result Diagrams: 12/07/16 05:43 12/07/16 05:43 Lab Results-Last 24 Hrs: Accuchecks Date 12/06/16 Date 12/06/16 Date 12/06/16 Time 22:00 Time 16:30 Time 11:11 Accucheck Value: 92 Accucheck Value: 141 Accucheck Value: 103 Lab Results-Last 24 Hours 12/07/16 12/07/16 Range/Units 05:43 05:43 WBC 4.3 (4.0-10.5) K/mm3 RBC 2.71 L (4.1-5.6) M/mm3 Hgb 9.0 L (12.5-18.0) gm/dl Hct 28.8 L (42-50) % MCV 106.3 H (78-100) fl MCH 33.2 H (26-32) pg MCHC 31.3 L (32-36) g/dl RDW 12.7 (11.5-14.0) % Plt Count 147 L (150-450) K/mm3 MPV 10.9 H (6-9.5) fl Gran % 73.6 H (36.0-66.0) % Lymphocytes % 20.2 L (24.0-44.0) % Monocytes % 5.8 (0.0-12.0) % Eosinophils % 0.2 (0.00-5.0) % Basophils % 0.2 (0.0-0.4) % Basophils # 0.01 (0-0.4) Sodium 143 (136-145) mEq/L Potassium 4.5 (3.5-5.1) mEq/L Chloride 112 H (98-107) mEq/L Carbon Dioxide 25.8 (21-32) mEq/L Anion Gap 9.8 (5-15) MEQ/L BUN 21 H (9-20) mg/dL Creatinine 1.26 (0.55-1.30) mg/dl Estimated GFR 59 ML/MIN Glucose 120 H (70-110) MG/DL Calcium 8.2 L (8.5-10.1) mg/dL Total Bilirubin 0.2 (0.2-1.0) mg/dL AST 14 L (15-37) U/L ALT 8 L (12-78) U/L Alkaline Phosphatase 45 L (46-116) U/L Serum Total Protein 6.6 (6.4-8.2) gm/dL Albumin 2.3 L (3.4-5.0) g/dL Micro Results-Entire Visit: Accuchecks Date 12/06/16 Date 12/06/16 Date 12/06/16 Time 22:00 Time 16:30 Time 11:11 Accucheck Value: 92 Accucheck Value: 141 Accucheck Value: 103 - Procedures and Test Procedures and Tests throughout Hospitalization: Therapy Orders & Screens 12/06/16 06:14 Oxygen NASAL CANNULA 4 lpm Comment: PER HM USE Diagnosis: intractable Vomiting with diverticulitis, crohns, UTI, renal stones 12/06/16 11:00 OT Screen per Nursing Assess Comment: Protocol Order Physician Instructions: Greater than 3 points order OT Admission Screening Reason For Exam: Triggered on Admission Diagnosis: intractable Vomiting with diverticulitis, crohns, UTI, renal stones Open Wound/Cellutlitis/Pressure Ulcers: No Acute Fx/ORIF/Change in wt bearing status: No Severe MUSCULOSKELETAL pain: No ADL Dysfunction: Yes Acute CVA w/Hemiparesis/Hemiplegia: No Decreased Functional Mobility/Strength: Yes Sprain/Strain: No Acute Post-op Mobility Dysfunction: No Total Points: 4 PT Screen per Nursing Assess ONCE Comment: Protocol Order Physician Instructions: Greater than 3 points order PT Admission Screenin Reason For Exam: Triggered on Admission Diagnosis: intractable Vomiting with diverticulitis, crohns, UTI, renal stones Open Wound/Cellutlitis/Pressure Ulcers: No Acute Fx/ORIF/Change in wt bearing status: No Severe MUSCULOSKELETAL pain: No ADL Dysfunction: Yes Acute CVA w/Hemiparesis/Hemiplegia: No Decreased Functional Mobility/Strength: Yes Sprain/Strain: No Acute Post-op Mobility Dysfunction: No Total Points: 4 12/07/16 02:08 neb [Respiratory Nebulizer] PRN Comment: DUO Q4PRN Diagnosis: intractable Vomiting with diverticulitis, crohns, UTI, renal stones Discharge Exam General Appearance: no apparent distress, alert Respiratory Exam: normal breath sounds, lungs clear, No respiratory distress Cardiovascular Exam: regular rate/rhythm, normal heart sounds Gastrointestinal/Abdomen Exam: soft, No tenderness, No mass Extremity Exam: normal inspection, normal range of motion Final Diagnosis/Problem List - Final Discharge Diagnosis/Problem (1) Diverticulitis large intestine Current Visit: Yes Status: Acute (2) Crohn disease Current Visit: Yes Status: Acute (3) Intractable vomiting Current Visit: Yes Status: Acute (4) Anemia Current Visit: No Status: Acute - Discharge Disposition: Home, Self-Care Condition: Good Prescriptions: New Ciprofloxacin HCl [Cipro] 500 mg PO BID #14 tablet Ondansetron HCl [Zofran] 4 mg PO Q8H PRN PRN #20 tablet PRN Reason: Nausea Continue Cyanocobalamin (Vitamin B-12) [Vitamin B-12] 1,000 mcg PO UD Sertraline HCl 100 mg [Zoloft 100 MG] 100 mg PO BID Pregabalin [Lyrica 150Mg] 150 mg PO BID Celecoxib [Celebrex] 200 mg PO UD Metaxalone [Skelaxin] 800 mg PO UD Glipizide 2.5 mg [Glucotrol Xl 2.5 MG] 2.5 mg PO UD Zaleplon [Sonata] 10 mg PO UD PANTOPRAZOLE 40 mg Tablet [Protonix 40MG Tablet] 40 mg PO UD Ferrous Sulfate [Slow Release Iron] 65 mg PO UD Folic Acid 1 mg PO UD Atorvastatin Calcium [Lipitor 40Mg] 40 mg PO DAILY Multivitamin [Multi-Vitamin Daily] 1 each PO DAILY Sulfasalazine 500 mg [Azulfidine 500 mg] 500 mg PO TID Instructions: Chronic Obstructive Pulmonary Disease, Urinary Tract Infection ( UTI) Follow up with: NELLY KANG [Primary Care Provider] -
[2016-12-07 07:58] VITALS: BP 120/56; PULSE 68; O2SAT 97
[2016-12-07] MEDS: Protonix 40MG Tablet PO SCH (09:20)
[2016-12-07] MEDS: solu-MEDROL 40 MG IV SCH (09:20)
[2016-12-07] MEDS: Pepcid 20 MG VIAL IV SCH (09:20)
[2016-12-07] MEDS: LYRICA 150MG PO SCH (09:20)
[2016-12-07] MEDS: ZOLOFT 50 MG TABLET PO SCH (09:20)
[2016-12-07] MEDS: PATIENT OWN MEDICATION PO SCH ×2 (09:21)
== END 2016-12-07 10:20 | disposition home or self-care (01) ==
LOC: ED 18:54 → MED SURG 21:30
PROVIDERS: ADMIT Family Medicine; ATTEND Family Medicine
DX: K57.30 Diverticulosis of large intestine without perforation or abscess without bleeding (principal); K50.90 Crohn's disease, unspecified, without complications; R11.10 Vomiting, unspecified; D64.9 Anemia, unspecified; Z79.899 Other long term (current) drug therapy; J44.9 Chronic obstructive pulmonary disease, unspecified; E11.9 Type 2 diabetes mellitus without complications; I10 Essential (primary) hypertension; Z87.891 Personal history of nicotine dependence
CPT/HCPCS: 36000; 36415; 71010; 74176; 80053; 81000; 82150; 82272; 82962; 83605; 83690; 84134; 84484; 85025; 87086; 87631; 93005; 93268; 94640; 94760; 96360; 96361; 96365; 96366; 96367; 96374; 96375; 99285; G0378; J0696; J2270; J2405; J2543; J2920; A9270-GY

== ENCOUNTER 2017-01-30 12:11 | Observation (INO) | payer MEDICARE ==
[2017-01-30] MEDS ORDERED: Lactated Ringers 1,000 ML IV ONE (12:58)
[2017-01-30] MEDS ORDERED: Lactated Ringers 1,000 ML IV SCH (13:00)
[2017-01-30 13:32] LABS: BASOPHIL % 0.3 % (0.0-0.4); Eosinophil % 0.6 % (0.00-5.0); Granulocytes % 63.5 % (36.0-66.0); Lymphocytes % 25.4 % (24.0-44.0); Mean Cell Volume 105.9 fl (78-100); Mean Platelet Volume 11.2 fl (6-9.5); Monocytes % 10.2 % (0.0-12.0); Platelet Count 222 K/mm3 (150-450); Red Blood Count 2.86 M/mm3 (4.1-5.6); Red Cell Distribution Width 12.7 % (11.5-14.0); White Blood Count 6.3 K/mm3 (4.0-10.5)
[2017-01-30 13:33] LABS: Collection Type VOID
[2017-01-30 13:34] LABS: COMPLETE URINE MICROSCOPIC? YES
[2017-01-30 13:38] LABS: Mean Corpuscular Hemoglobin 33.5 pg (26-32)
[2017-01-30 13:40] LABS: INR 1.14 (0.8-3.0); PROTIME 12.7 SECONDS (8.83-12.87)
[2017-01-30 13:43] LABS: PTT 35.4 SECONDS (24.1-36.1)
[2017-01-30 13:46] LABS: ALBUMIN 2.8 g/dL (3.4-5.0); BILIRUBIN,TOTAL 0.4 mg/dL (0.2-1.0); Carbon Dioxide 23.1 mEq/L (21-32); Potassium 4.5 mEq/L (3.5-5.1)
--- NOTE | 2017-01-30 14:14 | ERPHSYRPT ---
- History of Present Illness Time Seen by Provider: 01/30/17 12:36 Source: patient, family (son) Patient Subjective Stated Complaint: PT REPORTS HAVING DIARRHEA X 1 MONTH- RESOLVED 3 DAYS AGO WITH PT UNABLE TO MOVE BOWELS SINCE THEN-REPROTS LOW ABD CRAMPING ET PAIN-DENIES N/V-DENIES FEVER Triage Nursing Assessment: PT PALE WARM ET [id number] QUESTIONS CORRECTLY-ABD NONTENDER TO PALP-BOWEL SOUNDS HYPOACTIVE Physician History: CC: abd pain Hx: 81 y/o male pt of Dr Kang/Sabine Carver/Pamela/Baljeet. He had infected kidney stones treated surgically and had 4 rounds of abtx. He then has had 3 weeks diarrhea. No stool past 3 days and now feels constipated. No blood. No N/V. Some abd pain. Trouble starting urinary stream. No fever or chills. Did not have any tests on diarrhea. ALL: None ILL: Crohns, pulmonary fibrosis, CABG, kidney stones. Social: Lives home with . Son here with him. Allergies/Adverse Reactions: methotrexate Adverse Reaction (Verified 01/30/17 12:25) Home Medications: Atorvastatin Calcium [Lipitor 40Mg] 40 mg PO DAILY 07/17/16 [History] Celecoxib [Celebrex] 200 mg PO UD 07/17/16 [History] Ferrous Sulfate [Slow Release Iron] 65 mg PO UD 07/17/16 [History] Metaxalone [Skelaxin] 800 mg PO UD 07/17/16 [History] PANTOPRAZOLE 40 mg Tablet [Protonix 40MG Tablet] 40 mg PO UD 07/17/16 [ History] Sertraline HCl 100 mg [Zoloft 100 MG] 100 mg PO BID 07/17/16 [History] Zaleplon [Sonata] 10 mg PO UD 07/17/16 [History] Multivitamin [Multi-Vitamin Daily] 1 each PO DAILY 12/05/16 [History] Sulfasalazine 500 mg [Azulfidine 500 mg] 500 mg PO TID 12/06/16 [History] Albuterol 2.5 mg/3 ml Neb [Proventil 2.5 mg/3 ml Neb] 2.5 mg IH UD [History] Alendronate Sodium 70 mg [Fosamax 70 MG] 70 mg PO WEEKLY 01/30/17 [History ] Allopurinol 100 mg [Zyloprim 100 mg] 100 mg PO DAILY 01/30/17 [History] Codeine Phosphate/APAP #3 [Tylenol #3 Tablet] 1 tab PO UD 01/30/17 [History] Gabapentin [Neurontin] 300 mg PO TID 01/30/17 [History] Glipizide 2.5 mg [Glucotrol Xl 2.5 MG] 2.5 mg PO DAILY 01/30/17 [History] Hydrochlorothiazide 12.5 mg PO DAILY 01/30/17 [History] Tamsulosin HCl 0.4 mg [Flomax 0.4 MG] 0.4 mg PO HS 01/30/17 [History] Hx Tetanus, Diphtheria Vaccination/Date Given: No Hx Influenza Vaccination/Date Given: Yes Hx Pneumococcal Vaccination/Date Given: Yes Immunizations Up to Date: Yes - Review of Systems Constitutional: Malaise, Weakness (feels dehydrated), No Fever, No Chills Eyes: No Symptoms Ears, Nose, & Throat: No Symptoms Respiratory: No Cough, No Dyspnea Cardiac: No Chest Pain Abdominal/Gastrointestinal: Abdominal Pain (mild), Diarrhea, Constipation, No Nausea, No Vomiting Genitourinary Symptoms: Hesitancy, No Dysuria, No Hematuria Musculoskeletal: No Back Pain Skin: No Rash Neurological: No Headache All Other Systems: Reviewed and Negative - Past Medical History Pertinent Past Medical History: Yes ENT History: Cataracts Cardiac History: Congenital Heart Disease, Hypertension Respiratory History: COPD, Other Endocrine Medical History: Diabetes Type II GI Medical History: Crohns Disease, Diverticulitis History: Other Psycho-Social History: Depression Other Medical History: pulmonary fibrosis, kidney stones - Past Surgical History Past Surgical History: Yes Cardiac: CABG Gastrointestinal: Appendectomy Musculoskeletal: Orthopedic Surgery Other Surgical History: neck surg,knee surg, great toe calcium deposit - Social History Smoking Status: Former smoker Exposure to second hand smoke: No Drug Use: none Patient Lives Alone: No - Nursing Vital Signs Nursing Vital Signs: Initial Vital Signs Temperature 97.8 F Temperature Source Oral Pulse Rate 77 Respiratory Rate 22 Blood Pressure [Right Arm] 106/64 Pain Intensity 7 - Physical Exam General Appearance: alert, other (frail appearing elderly man, attentive) Eye Exam: PERRL/EOMI Ears, Nose, Throat Exam: dry mucous membranes Neck Exam: normal inspection, non-tender, supple Respiratory Exam: normal breath sounds Cardiovascular Exam: regular rate/rhythm Gastrointestinal/Abdomen Exam: soft, No tenderness, No distention, No mass, No guarding Male Genitalia Exam: normal genitalia, prostate enlargement, No prostate tenderness Rectal Exam: normal exam, normal rectal tone, black stool, No mass Back Exam: No CVA tenderness Extremity Exam: normal inspection, normal range of motion Neurologic Exam: alert, oriented x 3, cooperative, sensation nml, No motor deficits Skin Exam: warm, dry, pale SpO2 Interpretation: normal SpO2: 100 Oxygen Delivery: Room Air - Course Nursing assessment & vital signs reviewed: Yes EKG Interpreted by Me: RATE (77), Sinus Rhythm, NORMAL AXIS, LAFB, NORMAL INTERVALS (QTc 444), Non-specific ST Changes - CT Exams abd/pelvis CT Interpretation: Tele-radiologist Report (no acute; diverticulosis) Ordered Tests: Active Orders 24 hr Category Date Time Status Clean Catch Urine Specimen STAT Care 01/30/17 12:54 Active EKG-ER Only STAT Care 01/30/17 12:54 Active IV Insertion STAT Care 01/30/17 12:54 Active ABDOMEN AND PELVIS W/0 CONTRAS [CT] Stat Exams 01/30/17 13:16 Taken BLOOD CULTURE Stat Lab 01/30/17 15:12 Ordered CBC W DIFF Stat Lab 01/30/17 13:17 Completed CMP Stat Lab 01/30/17 13:17 Completed CULTURE,URINE Stat Lab 01/30/17 15:12 Ordered Lactic Acid Stat Lab 01/30/17 15:12 Ordered MAGNESIUM Stat Lab 01/30/17 13:17 Completed Occult Blood,Stool Other Stat Lab 01/30/17 14:00 Received PROTIME WITH INR Stat Lab 01/30/17 13:10 Completed PTT Stat Lab 01/30/17 13:10 Completed UA W/ MICROSCOPIC Stat Lab 01/30/17 13:17 Completed Medication Summary Discontinued Medications Generic Name Dose Route Start Last Admin Trade Name Freq PRN Reason Stop Dose Admin Lactated Ringer's 1,000 mls @ 100 mls/hr 01/30/17 13:00 01/30/17 13:06 Lactated Ringers IV 03/01/17 12:59 100 mls/hr .Q10H PATRICIA Administration Lactated Ringer's Confirm 01/30/17 12:58 Lactated Ringers Administered 01/30/17 12:59 Dose 1,000 mls @ ud IV .STK-MED ONE Lab/Rad Data: Laboratory Result Diagrams 01/30/17 13:17 01/30/17 13:17 Laboratory Results 01/30/17 01/30/17 01/30/17 Range/Units 13:17 13:17 13:17 WBC 6.3 (4.0-10.5) K/mm3 RBC 2.86 L (4.1-5.6) M/mm3 Hgb 9.6 L (12.5-18.0) gm/dl Hct 30.3 L (42-50) % MCV 105.9 H (78-100) fl MCH 33.5 H (26-32) pg MCHC 31.7 L (32-36) g/dl RDW 12.7 (11.5-14.0) % Plt Count 222 (150-450) K/mm3 MPV 11.2 H (6-9.5) fl Gran % 63.5 (36.0-66.0) % Lymphocytes % 25.4 (24.0-44.0) % Monocytes % 10.2 (0.0-12.0) % Eosinophils % 0.6 (0.00-5.0) % Basophils % 0.3 (0.0-0.4) % Basophils # 0.02 (0-0.4) INR (0.8-3.0) APTT (24.1-36.1) SECONDS Sodium 139 (136-145) mEq/L Potassium 4.5 (3.5-5.1) mEq/L Chloride 106 (98-107) mEq/L Carbon Dioxide 23.1 (21-32) mEq/L Anion Gap 14.0 (5-15) MEQ/L BUN 37 H (9-20) mg/dL Creatinine 1.62 H (0.55-1.30) mg/dl Estimated GFR 44 ML/MIN Glucose 90 (70-110) MG/DL Calcium 9.3 (8.5-10.1) mg/dL Magnesium 1.7 L (1.8-2.4) mg/dL Total Bilirubin 0.4 (0.2-1.0) mg/dL AST 16 (15-37) U/L ALT 9 L (12-78) U/L Alkaline Phosphatase 56 (46-116) U/L Serum Total Protein 7.0 (6.4-8.2) gm/dL Albumin 2.8 L (3.4-5.0) g/dL Ur Collection Type Urine Color (YELLOW) Urine Appearance (CLEAR) Urine pH (5-6) Ur Specific Leonard (1.005-1.025) Urine Protein (Negative) Urine Glucose (UA) (NEGATIVE) mg/dL Urine Ketones (NEGATIVE) Urine Nitrite (NEGATIVE) Urine Bilirubin (NEGATIVE) Urine Urobilinogen (0-1) mg/dL Urine WBC (Auto) (NEGATIVE) Urine RBC (Auto) (0-5) Russ/ul Urine Microscopic RBC (0-2) /HPF Urine Microscopic WBC (0-5) /HPF Ur Epithelial Cells (FEW) /HPF Urine Bacteria (NEGATIVE) /HPF Urine Yeast (NEGATIVE) /HPF Specimen Received 01/30/17 01/30/17 Range/Units 13:17 13:10 WBC (4.0-10.5) K/mm3 RBC (4.1-5.6) M/mm3 Hgb (12.5-18.0) gm/dl Hct (42-50) % MCV (78-100) fl MCH (26-32) pg MCHC (32-36) g/dl RDW (11.5-14.0) % Plt Count (150-450) K/mm3 MPV (6-9.5) fl Gran % (36.0-66.0) % Lymphocytes % (24.0-44.0) % Monocytes % (0.0-12.0) % Eosinophils % (0.00-5.0) % Basophils % (0.0-0.4) % Basophils # (0-0.4) INR 1.14 (0.8-3.0) APTT 35.4 (24.1-36.1) SECONDS Sodium (136-145) mEq/L Potassium (3.5-5.1) mEq/L Chloride (98-107) mEq/L Carbon Dioxide (21-32) mEq/L Anion Gap (5-15) MEQ/L BUN (9-20) mg/dL Creatinine (0.55-1.30) mg/dl Estimated GFR ML/MIN Glucose (70-110) MG/DL Calcium (8.5-10.1) mg/dL Magnesium (1.8-2.4) mg/dL Total Bilirubin (0.2-1.0) mg/dL AST (15-37) U/L ALT (12-78) U/L Alkaline Phosphatase (46-116) U/L Serum Total Protein (6.4-8.2) gm/dL Albumin (3.4-5.0) g/dL Ur Collection Type VOID Urine Color CHAITANYA (YELLOW) Urine Appearance SLIGHTLY CLOUDY (CLEAR) Urine pH 5.0 (5-6) Ur Specific Leonard 1.020 (1.005-1.025) Urine Protein 100 (Negative) Urine Glucose (UA) NEGATIVE (NEGATIVE) mg/dL Urine Ketones NEGATIVE (NEGATIVE) Urine Nitrite NEGATIVE (NEGATIVE) Urine Bilirubin MODERATE (NEGATIVE) Urine Urobilinogen 0.2 (0-1) mg/dL Urine WBC (Auto) MODERATE (NEGATIVE) Urine RBC (Auto) TRACE-INTACT (0-5) Russ/ul Urine Microscopic RBC 5-10 (0-2) /HPF Urine Microscopic WBC >100 (0-5) /HPF Ur Epithelial Cells FEW (FEW) /HPF Urine Bacteria MANY (NEGATIVE) /HPF Urine Yeast MODERATE (NEGATIVE) /HPF Specimen Received 01/30/17 1333 - Progress Progress Note: 01/30/17 15:20 Pt appears dehydrated. Chronic anemia associated with his crohns. UTI continues despite macrobid prophylaxis. Will place in observation. Called Dr Buck (oc) and will start rocephin, urine culture. Counseled pt/family regarding: lab results, diagnosis, need for follow-up, rad results - Departure Time of Disposition: 15:20 Departure Disposition: Observation Clinical Impression: UTI (urinary tract infection), Constipation, Dehydration Condition: Stable Critical Care Time: No Referrals: NELLY KANG [Primary Care Provider] -
[2017-01-30 14:58] LABS: WBC >100 /HPF (0-5)
[2017-01-30 14:59] LABS: Bacteria MANY /HPF (NEGATIVE); Epithelial Cells FEW /HPF (FEW); Yeast MODERATE /HPF (NEGATIVE)
[2017-01-30] MEDS ORDERED: ROCEPHIN 1 Gm-D5w 50 ml Bag** 1 G/50 ML IVPB IV ONE ×2 (15:18→15:30)
[2017-01-30] MEDS ORDERED: Sodium Chloride 0.9% 1000 ML 1,000 ML IV SCH (15:30)
[2017-01-30] MEDS: Sodium Chloride 0.9% 1000 ML 1,000 ML IV SCH (16:25)
[2017-01-30] MEDS ORDERED: Tylenol #3 Tablet PO PRN (17:24)
[2017-01-30] MEDS ORDERED: NovoLOG Insulin SQ PRN (17:32)
[2017-01-30] MEDS: MORPHINE SULFATE 4 MG INJ IV PRN (20:36)
[2017-01-30] MEDS ORDERED: Flomax 0.4 MG PO ONE (22:00)
[2017-01-30] MEDS ORDERED: NEURONTIN 300 MG PO ONE (22:00)
[2017-01-30] MEDS ORDERED: ZOLOFT 50 MG TABLET PO ONE (22:00)
[2017-01-30] MEDS ORDERED: Ambien 10 MG PO ONE (22:00)
[2017-01-30] MEDS ORDERED: ZOCOR 20MG PO ONE (22:00)
[2017-01-30] MEDS ORDERED: AZULFIDINE 500 MG PO ONE (22:00)
--- NOTE | 2017-01-30 22:00 | XRAY ---
Indication: Abdominal pain, diarrhea, than constipation. Multiple contiguous axial images obtained through the abdomen and pelvis without contrast as ordered. Comparison: December 11, 2016. Lung bases again demonstrates bilateral pulmonary fibrosis/scarring with bronchiectasis. Stable right infrahilar and right base calcified granulomas. The heart is borderline enlarged. Noncontrasted stomach and bowel loops again appear nonobstructed. Stable descending/sigmoid diverticulosis without diverticulitis. No free fluid/air. Stable hepatic cyst, nonobstructing bilateral renal calculi, prominent prostate gland with chunky calcifications, calcified splenic granulomas, and IVC filter. Spleen remains enlarged today measuring 14 cm in greatest dimension. Remaining liver, gallbladder, pancreas, spleen, adrenal glands, kidneys, ureters, and bladder appear unremarkable for noncontrast exam. Again heavy aortoiliac calcifications without AAA. Osseous structures intact with mild degenerative changes throughout the spine. Chronic-appearing L5 grade 2 anterolisthesis. Small bilateral fatty inguinal hernias. Impression: 1. Again colonic diverticulosis. 2. Stable nonobstructing bilateral renal calculi, hepatic cyst, enlarged prostate gland with benign chunky calcifications, splenomegaly, pulmonary fibrosis/scarring/bronchiectasis, and evidence for old granulomatous disease. Comment: Preliminary interpretation was made by [facility] who reports "loss of haustrations" in the transverse colon and is a chronic finding as seen on older studies. CTDI 12.93
[2017-01-31] MEDS: MORPHINE SULFATE 4 MG INJ IV PRN ×4 (01:29→18:26)
[2017-01-31] MEDS: Sodium Chloride 0.9% 1000 ML 1,000 ML IV SCH ×3 (01:29→18:32)
[2017-01-31 06:00] LABS: BASOPHIL % 0.2 % (0.0-0.4); Eosinophil % 1.5 % (0.00-5.0); Granulocytes % 64.2 % (36.0-66.0); Lymphocytes % 23.8 % (24.0-44.0); Mean Cell Volume 106.2 fl (78-100); Mean Corpuscular Hemoglobin 32.9 pg (26-32); Mean Platelet Volume 10.8 fl (6-9.5); Monocytes % 10.3 % (0.0-12.0); Platelet Count 171 K/mm3 (150-450); Red Blood Count 2.43 M/mm3 (4.1-5.6); Red Cell Distribution Width 12.7 % (11.5-14.0); White Blood Count 5.4 K/mm3 (4.0-10.5)
[2017-01-31 06:20] LABS: BLOOD UREA NITROGEN 29 mg/dL (9-20); CHLORIDE 109 mEq/L (98-107); Carbon Dioxide 23.8 mEq/L (21-32); Glucose 74 MG/DL (70-110); Potassium 4.1 mEq/L (3.5-5.1); SODIUM 139 mEq/L (136-145)
[2017-01-31] MEDS: ROCEPHIN 1 Gm-D5w 50 ml Bag** 1 G/50 ML IVPB IV SCH (09:35)
[2017-01-31] MEDS: ENOXAPARIN SODIUM SQ SCH (09:35)
[2017-01-31] MEDS ORDERED: PROVENTIL 2.5 MG/3 ML NEB IH PRN (13:46)
[2017-01-31] MEDS ORDERED: MEDICATION INTERVENTION MC PRN ×2 (14:08→14:13)
[2017-01-31] MEDS: THERAGRAN MULTIVITAMIN PO SCH (14:32)
[2017-01-31] MEDS: AZULFIDINE 500 MG PO SCH ×2 (14:32→21:14)
[2017-01-31] MEDS: ZOLOFT 50 MG TABLET PO SCH ×2 (14:32→21:15)
[2017-01-31] MEDS: NEURONTIN 300 MG PO SCH ×2 (14:32→21:15)
[2017-01-31] MEDS: ZYLOPRIM 100 MG PO SCH (14:32)
[2017-01-31] MEDS: Protonix 40MG Tablet PO SCH (14:34)
[2017-01-31] MEDS ORDERED: NON-FORMULARY ITEM (Budesonide [Budesonide Ec] 3 MG) PO SCH (15:00)
[2017-01-31] MEDS: Ambien 10 MG PO SCH (21:13)
[2017-01-31] MEDS: FEOSOL 325 MG PO SCH (21:13)
[2017-01-31] MEDS: Flomax 0.4 MG PO SCH (21:13)
[2017-01-31] MEDS ORDERED: LIPITOR 40MG PO SCH (22:00)
[2017-01-31] MEDS ORDERED: NON-FORMULARY ITEM (Sertraline Hcl 100 Mg [Zoloft 100 Mg] 100 MG) PO SCH (22:00)
[2017-01-31] MEDS ORDERED: ZALEPLON 10 MG PO SCH (22:00)
[2017-02-01] MEDS: MORPHINE SULFATE 4 MG INJ IV PRN ×3 (06:31→23:57)
--- NOTE | 2017-02-01 08:43 | HP ---
HISTORY OF PRESENT ILLNESS: Mr. Lynch reports that he had had diarrhea for 4-5 times per day for some time and then didn't have any stools for the past 3 days, but did have a little bit of stool yesterday. He doesn't feel like he is constipated. He hasn't noticed any blood in his stool. No fever. No nausea. He reports that he had belly pain that seemed to be getting worse this past week and the medications here in the hospital seem to help. He says it is dull and constant and nothing seems to make it worse. He reports it is better with having a stool and he has had a lot of gas. When asked where the pain is, he points down to his lower abdomen on both sides. He reports he has had some dysuria as well, but no blood in his stool. He reports a history of a colonoscopy last year in [place], but he is not sure where that was and he also reports a history of Crohn's disease. He states he was seeing a specialist, but they stated there is nothing else that they could do for him, so it appears Dr. Duenas is treating this. REVIEW OF SYSTEMS: He said he has just felt very weak. He denies any falls or syncope. No chest pain or no dyspnea. Otherwise, Review of Systems is negative. PAST MEDICAL HISTORY: Pulmonary fibrosis, osteoporosis, gout, hyperlipidemia, Crohn's disease, arthritis, diabetes mellitus type 2, hypertension, gastroesophageal reflux disease, depression, insomnia, history of anemia, nephrolithiasis 3 months ago, and history of urinary tract infections. He reports he wears O2 at home 4 liters by nasal cannula. PAST SURGICAL HISTORY: Coronary artery disease he reports with bypass surgery, neck surgery, appendectomy, knee surgery, a calcification removed from his right big toe. SOCIAL HISTORY: He is and lives with his . He denies any tobacco or alcohol use. FAMILY HISTORY: Noncontributory. CURRENT MEDICATIONS: Albuterol 2.5 mg inhaled q 4 h PRN, Fosamax 70 mg PO weekly, atorvastatin 40 mg PO q HS, budesonide 3 mg PO tid, Celebrex 200 mg PO bid, Tylenol #3 1 tab PO tid PRN pain, ferrous sulfate 65 mg PO bid, gabapentin 300 mg PO tid, glipizide 2.5 mg PO daily, hydrochlorothiazide 12.5 mg PO daily, Skelaxin 800 mg PO tid, multi-vitamin 1 tab PO daily, Ofev 100 mg PO daily, pantoprazole 40 mg daily, sertraline 100 mg bid, sulfasalazine 500 mg PO tid, Tamsulosin 0.4 mg PO q HS, sonata 10 mg PO q HS. ALLERGIES: METHOTREXATE. PHYSICAL EXAMINATION: VITAL SIGNS: Temperature current 97.6, temperature maximum 97.9, heart rate 73-82, respiratory rate 16-20, O2 saturation 95-98% on 4 liters nasal cannula, BP 100-124/57-65. GENERAL: The patient is a pleasant, talkative man sitting up in no acute distress. He is pale. CVS: He has a regular rate and rhythm. No murmurs, gallops, or rubs are appreciated. CHEST: Clear to auscultation bilaterally. No crackles or wheezes. He is on 4 liters nasal cannula O2. ABDOMEN: Mildly tender with hyperactive bowel sounds. No hepatosplenomegaly. EXTREMITIES: No clubbing, cyanosis, or edema. SKIN: Warm, dry, and intact. LABORATORY DATA: Hgb was 8.0 this morning, 9.6 yesterday. MCV is elevated at 106. Platelet count and WBC are normal. BUN 29. Creatinine was 1.62 on admission, now 1.16. UA had greater than 100 WBC, many bacteria. Urine culture is already growing a gram negative with ID and sensitivity pending. He has 2 blood cultures in the lab. He had a CT of his abdomen and pelvis done in the Emergency Room which revealed colonic diverticulosis. Please see the radiologist's report for the full dictation. ASSESSMENT AND PLAN: 1. URINARY TRACT INFECTION. He has been started on ceftriaxone. Will continue to follow his culture. 2. ANEMIA. I am going to check his iron studies and continue with ferrous sulfate. Will try to obtain his colonoscopy reports from his previous doctor. I am also going to check a vitamin B12 level. 3. ABDOMINAL PAIN WITH HISTORY OF CROHN'S DISEASE. Will continue his home medications and try to get records from his previous doctor. 4. CODE STATUS. He wishes to be supportive care only and this is confirmed with the patient.
--- NOTE | 2017-02-01 09:02 | PCM.NOTE ---
Date and Time: 02/01/17 0858 Subjective Assessment: He reports his abdominal pain is better. He is eating well. He was able to get up with assist of one yesterday. - Review of Systems Constitutional: Fatigue Eyes: No Symptoms Ears, Nose, & Throat: No Symptoms Respiratory: Short Of Breath Cardiac: No Symptoms Abdominal/Gastrointestinal: Constipation Genitourinary Symptoms: No Symptoms Musculoskeletal: No Symptoms Skin: No Symptoms Objective Exam General Appearance: no apparent distress, alert, other (sitting up and eating his breakfast, talkative, pleasant.) Neurologic Exam: alert, cooperative, normal mood/affect Skin Exam: normal color, warm, dry, No rash Respiratory Exam: other (crackles at bases bilat, equal breath sounds), No rhonchi, No wheezing Gastrointestinal/Abdomen Exam: soft, normal bowel sounds, No tenderness, No distention, No mass Extremity Exam: other (no c/c/e) OBJECTIVE DATA Vital Signs: Vital Signs - 24 hr Temp Pulse Resp BP Pulse Ox 02/01/17 08:00 97.2 F 75 20 110/55 97 02/01/17 04:00 98.3 F 81 16 104/57 98 02/01/17 00:00 97.9 F 82 16 102/59 96 01/31/17 20:00 98.4 F 79 17 103/53 96 01/31/17 19:23 79 17 96 01/31/17 15:54 97.8 F 86 20 128/68 96 01/31/17 12:21 97.8 F 75 18 118/59 97 Oxygen-Last 24 hours O2 Percentage 4 Liters = 36% O2 Percentage 4 Liters = 36% O2 Percentage 4 Liters = 36% O2 Percentage 4 Liters = 36% O2 Percentage 4 Liters = 36% O2 Percentage 4 Liters = 36% Pain Assessment - Last Documented Pain Intensity 8 Pain Scale Used 0-10 Pain Scale Intake and Output: Intake & Output 01/30/17 01/31/17 02/01/17 02/02/17 06:59 06:59 06:59 06:59 Intake Total 1240 2056 Output Total 975 1975 Balance 265 81 Weight 67.614 kg Lab Results: Accuchecks Date 01/31/17 Date 01/31/17 Time 16:30 Time 11:30 Accucheck Value: 112 Accucheck Value: 130 Accucheck Value: 78 Lab Results-Last 24 Hours 01/31/17 01/31/17 Range/Units 04:00 04:00 Iron 41 L (50-175) ug/dl TIBC 151 L (250-450) ug/dl Iron Saturation 27.2 (20-39) % Vitamin B12 4515 H (193-986) TSH 3rd Generation 1.998 (0.358-3.740) mIU/L Assessment/Plan (1) UTI (urinary tract infection) Current Visit: Yes Status: Acute Assessment & Plan: Continue current antibiotic and follow culture results. Code(s): N39.0 - URINARY TRACT INFECTION, SITE NOT SPECIFIED (2) Iron deficiency anemia Current Visit: Yes Status: Acute Assessment & Plan: Continue iron supplement. Trying to get records of previous colonoscopy from PCP. Recheck CBC today. Code(s): D50.9 - IRON DEFICIENCY ANEMIA, UNSPECIFIED (3) Crohn disease Current Visit: No Status: Acute Assessment & Plan: Continue home medications. Code(s): K50.90 - CROHN'S DISEASE, UNSPECIFIED, WITHOUT COMPLICATIONS (4) Pulmonary fibrosis Current Visit: No Status: Acute Assessment & Plan: Continue home medication. Code(s): J84.10 - PULMONARY FIBROSIS, UNSPECIFIED (5) Generalized weakness Current Visit: Yes Status: Acute Assessment & Plan: May be from UTI, anemia and Crohn disease all combined. Continue to work on walking and strength. Code(s): R53.1 - WEAKNESS
[2017-02-01] MEDS: AZULFIDINE 500 MG PO SCH ×3 (09:42→21:45)
[2017-02-01] MEDS: ZOLOFT 50 MG TABLET PO SCH ×2 (09:43→21:47)
[2017-02-01] MEDS: NEURONTIN 300 MG PO SCH ×3 (09:43→21:46)
[2017-02-01] MEDS: ZYLOPRIM 100 MG PO SCH (09:43)
[2017-02-01] MEDS: THERAGRAN MULTIVITAMIN PO SCH (09:43)
[2017-02-01] MEDS: FEOSOL 325 MG PO SCH ×2 (09:44→21:46)
[2017-02-01] MEDS: ROCEPHIN 1 Gm-D5w 50 ml Bag** 1 G/50 ML IVPB IV SCH (09:44)
[2017-02-01] MEDS: ENOXAPARIN SODIUM SQ SCH (09:44)
[2017-02-01] MEDS: Protonix 40MG Tablet PO SCH (09:44)
[2017-02-01 09:58] LABS: BASOPHIL % 0.3 % (0.0-0.4); Eosinophil % 1.1 % (0.00-5.0); Granulocytes % 57.4 % (36.0-66.0); Lymphocytes % 31.1 % (24.0-44.0); Mean Cell Volume 107.4 fl (78-100); Mean Platelet Volume 10.9 fl (6-9.5); Monocytes % 10.1 % (0.0-12.0); Platelet Count 219 K/mm3 (150-450); Red Blood Count 2.71 M/mm3 (4.1-5.6); Red Cell Distribution Width 13.1 % (11.5-14.0); White Blood Count 6.1 K/mm3 (4.0-10.5)
[2017-02-01] MEDS ORDERED: NON-FORMULARY ITEM (Multivitamin [Multi-Vitamin Daily] 1 EACH) PO SCH (10:00)
[2017-02-01] MEDS ORDERED: NINTEDANIB ESYLATE 100 MG PO SCH (10:00)
[2017-02-01 10:04] LABS: ANION GAP 11.8 MEQ/L (5-15); Carbon Dioxide 23.3 mEq/L (21-32); Potassium 3.9 mEq/L (3.5-5.1)
[2017-02-01 10:09] LABS: Mean Corpuscular Hemoglobin 33.5 pg (26-32)
[2017-02-01] MEDS: Sodium Chloride 0.9% 1000 ML 1,000 ML IV SCH (18:30)
[2017-02-01] MEDS: Ambien 10 MG PO SCH (21:45)
[2017-02-01] MEDS: Flomax 0.4 MG PO SCH (21:46)
[2017-02-01] MEDS ORDERED: ZOCOR 20MG PO SCH (22:00)
[2017-02-02] MEDS: MORPHINE SULFATE 4 MG INJ IV PRN (04:26)
[2017-02-02] MEDS ORDERED: PHARMACY DOSING REQUEST MC ONE (08:42)
[2017-02-02] MEDS: ROCEPHIN 1 Gm-D5w 50 ml Bag** 1 G/50 ML IVPB IV SCH (09:50)
[2017-02-02] MEDS: AZULFIDINE 500 MG PO SCH (09:52)
[2017-02-02] MEDS: ENOXAPARIN SODIUM SQ SCH (09:53)
[2017-02-02] MEDS: FEOSOL 325 MG PO SCH (09:54)
[2017-02-02] MEDS: Protonix 40MG Tablet PO SCH (09:54)
[2017-02-02] MEDS: THERAGRAN MULTIVITAMIN PO SCH (09:54)
[2017-02-02] MEDS: NEURONTIN 300 MG PO SCH (09:54)
[2017-02-02] MEDS: ZYLOPRIM 100 MG PO SCH (09:55)
[2017-02-02] MEDS: ZOLOFT 50 MG TABLET PO SCH (09:55)
[2017-02-02] MEDS ORDERED: Invanz 1 GM*** 1 G in Sodium Chloride 100ML MINI-BAG PLUS 100 ML IV SCH (10:00)
--- NOTE | 2017-02-02 12:07 | PCM.DCORD ---
- Discharge Discharge Date: 02/02/17 Disposition: Home, Self-Care Condition: Fair Prescriptions: New Ferrous Sulfate 325 mg [Feosol 325 mg] 325 mg PO BID #60 tablet Ertapenem Sodium 1 gm [Invanz 1 GM] 1 g IV DAILY #6 vial Continue Sertraline HCl 100 mg [Zoloft 100 MG] 100 mg PO BID Zaleplon [Sonata] 10 mg PO HS PANTOPRAZOLE 40 mg Tablet [Protonix 40MG Tablet] 40 mg PO DAILY Atorvastatin Calcium [Lipitor 40Mg] 40 mg PO HS Multivitamin [Multi-Vitamin Daily] 1 each PO DAILY Sulfasalazine 500 mg [Azulfidine 500 mg] 500 mg PO TID Gabapentin [Neurontin] 300 mg PO TID Tamsulosin HCl 0.4 mg [Flomax 0.4 MG] 0.4 mg PO HS Codeine Phosphate/APAP #3 [Tylenol #3 Tablet] 1 tab PO TIDPRN PRN PRN Reason: Moderate Pain Alendronate Sodium 70 mg [Fosamax 70 MG] 70 mg PO WEEKLY Allopurinol 100 mg [Zyloprim 100 mg] 100 mg PO DAILY Albuterol 2.5 mg/3 ml Neb [Proventil 2.5 mg/3 ml Neb] 2.5 mg IH Q4HPRN PRN PRN Reason: Shortness Of Breath/Wheezing Budesonide [Budesonide EC] 3 mg PO TID Nintedanib Esylate [Ofev] 100 mg PO DAILY Discontinued Celecoxib [Celebrex] 200 mg PO BID Metaxalone [Skelaxin] 800 mg PO TID Ferrous Sulfate [Slow Release Iron] 65 mg PO BID Glipizide 2.5 mg [Glucotrol Xl 2.5 MG] 2.5 mg PO DAILY Hydrochlorothiazide 12.5 mg PO DAILY Instructions: Urinary Tract Infection (UTI), Iron Deficiency Anemia Additional Instructions: Go to infusion center at [facility] daily for IV antibiotics from 02/03/17 through 02/08. Follow up with: NELLY KANG [Primary Care Provider] - Forms: Patient Portal Information
[2017-02-02 12:18] VITALS: BP 130/60; PULSE 90; O2SAT 96
--- NOTE | 2017-02-04 12:08 | DS ---
DISCHARGE DIAGNOSES: 1) URINARY TRACT INFECTION. 2) IRON DEFICIENCY ANEMIA. 3) CROHN'S DISEASE. 4) PULMONARY FIBROSIS. 5) GENERALIZED WEAKNESS. DISCHARGE PHYSICAL EXAMINATION: VITALS: Temperature current 98F, temperature max 98.3F, heart rate 70 to 90, respiratory rate 16 to 20, blood pressure 101 to 130 over 57 to 60. Oxygen saturation 96 to 97% on 4 liters nasal cannula. GENERAL: The patient is a pleasant talkative man sitting up in no acute distress stating that he did feel better. CVS: He has a regular rate and rhythm. No murmurs, gallops or rubs are appreciated. CHEST: He has fine crackles at the bases of his lungs bilaterally. No wheezing. No rhonchi. Equal breath sounds. ABDOMEN: He has mild suprapubic tenderness. No guarding. No rigidity. Normal bowel sounds. EXTREMITIES: No clubbing, cyanosis or edema. SKIN: Warm, dry and intact. HOSPITAL COURSE: 1) URINARY TRACT INFECTION: He had UA done in the emergency room that revealed greater than 100 white blood cells, many bacteria. He had a urine culture that quickly grew gram negative organism and then on the day of his discharge it was found to be Escherichia coli that was ESBL positive resistant to all the IV antibiotics the patient had been on ceftriaxone during his hospitalization but this Escherichia coli was resistant to the ceftriaxone. It was susceptible to Meropenem and decision was made to start Invanz 1 gm and have him to this daily. He will get his first dose in the hospital before his discharge and then continue for six more days in the Infusion Center as an outpatient with manufacturing planner and nurse stated that this had been set up with no problems with his insurance and then he will need to follow up with his primary care provider who is Dr. Duenas. 2) IRON DEFICIENCY ANEMIA: His hemoglobin was as low at 8.0 during his hospitalization. His last hemoglobin was 9.1 on 02/01/2017. He was not transfused while he was here. Iron studies were checked and his iron was low at 41. His TRBC was also noted to be low at 151. He was started on ferrous sulfate 325 mg p.o. He had also been on some iron before his admission. 3) CROHN'S DISEASE: His abdominal pain seemed to improve during this hospitalization and this was stable. He was continued on his home medications. 4) PULMONARY FIBROSIS: He continued to require oxygen which is his baseline at home and this was stable as well and he was continued on his home medications. 5) GENERALIZED WEAKNESS: This seemed to improve during his hospitalization. His family was comfortable with taking him home. They stated that they did not need any home health care or rehab stay so he was discharged to home to follow up again with is primary care doctor. DISCHARGE MEDICATIONS: Ferrous sulfate 325 mg b.i.d., Invanz 1 gm daily for six more days, Sertraline 100 mg b.i.d., Sonata 10 mg p.o. q.h.s., pantoprazole 40 mg daily, atorvastatin 40 mg p.o. q.h.s., multivitamin 1 tablet p.o. daily, sulfasalazine 500 mg p.o. t.i.d., Neurontin 300 mg p.o. t.i.d., Tamsulosin 0.4 mg p.o. q.h.s., Tylenol #3 one tablet p.o. t.i.d. as needed for pain, Fosamax 70 mg p.o. weekly, allopurinol 100 mg p.o. daily, Albuterol 3 ml nebulized every four hours as needed, budesonide 3 mg p.o. t.i.d. and Ofev 100 mg p.o. daily. His Celebrex and Skelaxin were stopped during his hospitalization. FOLLOW UP: He is to follow up with his primary care doctor, Dr. Duenas. DISPOSITION: The patient was discharged to home in fair condition.
== END 2017-02-02 13:20 | disposition home or self-care (01) ==
LOC: ED 12:11 → MED SURG 16:13
PROVIDERS: ADMIT Internal Medicine; ATTEND Internal Medicine
DX: N39.0 Urinary tract infection, site not specified (principal); B96.20 Unspecified Escherichia coli [E. coli] as the cause of diseases classified elsewhere; B96.89 Other specified bacterial agents as the cause of diseases classified elsewhere; Z16.12 Extended spectrum beta lactamase (ESBL) resistance; D50.9 Iron deficiency anemia, unspecified; K50.90 Crohn's disease, unspecified, without complications; J84.10 Pulmonary fibrosis, unspecified; R53.1 Weakness; M81.0 Age-related osteoporosis without current pathological fracture; M10.9 Gout, unspecified; E78.5 Hyperlipidemia, unspecified; E11.9 Type 2 diabetes mellitus without complications; I10 Essential (primary) hypertension; K21.9 Gastro-esophageal reflux disease without esophagitis; F33.1 Major depressive disorder, recurrent, moderate; Z99.81 Dependence on supplemental oxygen; I25.810 Atherosclerosis of coronary artery bypass graft(s) without angina pectoris
CPT/HCPCS: 36000; 36415; 74176; 80048; 80053; 81000; 82272; 82607; 82962; 83036; 83540; 83550; 83605; 83735; 84443; 85025; 85610; 85730; 87040; 87077; 87086; 87186; 93005; 94760; 99285; G0378; J0696; J1335; J1650; J2270; A9270-GY